=== PATIENT | male | born 1930 | race Caucasian/White ===

== ENCOUNTER 2016-05-17 12:19 | Inpatient (IN) | payer OTHER, MEDICARE ==
[~2016-05-17] VITALS: Ht 175.3 cm; Wt 81.6 kg
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
--- NOTE | 2016-05-17 12:41 | NUR ---
PT'S SUPRAPUBIC TUBE DRAINING CLEAR YELLOW URINE, L FOOT WITH WOUND ON PLANTAR PORTION OF HEEL, AND ACHILLES AREA OF HEEL WITH DRESSINGS IN PLACE, MINIMAL DRAINAGE NOTED. NO ODOR NOTED. DENIES PAIN AT SITES. PICC LINE IN LEFT UPPER ARM WITHOUT SIGNS OF INFECTION. RESTRICTED EXTREMITY BRACELET PLACED.
--- NOTE | 2016-05-17 13:08 | NUR ---
BLOOD WORK DRAWN VIA STRAIGHT STICK FROM [facility] (SST, LAV, BLUE, CEVALLOS) AND SENT TO LAB. URINE TRIO SENT TO LAB NOW FROM SUPRAPUBIC TUBE/DRAINAGE BAG.
--- NOTE | 2016-05-17 13:13 | NUR ---
PT'S O2 SAT NOTED TO BE 87% ON RA WITH STEADY WAVEFORM. PT PLACED ON 3L NC O2 WITH IMPROVEMENT TO 98%. WILL CONTINUE TO MONITOR.
[2016-05-17 13:15] LABS: ABSOLUTE BASOPHIL COUNT 0 /CUMM (0.0-0.2); ABSOLUTE EOSINOPHIL COUNT 0.3 /CUMM (0.0-0.7); ABSOLUTE LYMPH COUNT 1.2 /CUMM (1.2-3.4); ABSOLUTE MONOCYTE COUNT 0.9 /CUMM (0.10-0.60); BASOPHIL % 0.4 % (0.0-2.0); GRANULOCYTE % 74.3 % (42.2-75.2); MEAN CORPUSCULAR HGB 27.3 PG (27.0-31.0); MEAN CORPUSCULAR HGB CONC 32.8 G/DL (33.0-37.0); MEAN CORPUSCULAR VOLUME 83.1 FL (80.0-94.0); MEAN PLATELET VOLUME 6.7 FL (7.4-10.4); PLATELET COUNT 410 /CUMM (130-400); RBC DISTRIBUTION WIDTH 14.6 % (11.5-14.5); RED BLOOD CELL CT 2.59 /CUMM (4.70-6.10); WHITE BLOOD CELL COUNT 9.4 /CUMM (4.8-10.8)
--- NOTE | 2016-05-17 13:18 | NUR ---
DR. MURILLO AWARE OF O2 SAT
[2016-05-17 13:23] LABS: HEMATOCRIT 21.5 % (42-52)
--- NOTE | 2016-05-17 13:23 | NUR ---
CRITICAL TEST RESULTS [id number] SHAWN NELSON 86 M TESTS AND RESULTS: HGB 7.1 AND HCT 21.5 Results received and read back by: NATALIE CRUZ Results received date and time: 05/17/16 1323 The following provider was notified of the results, and read the results back: DR. MURILLO Notified date and time: 05/17/16 at 1323
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
--- NOTE | 2016-05-17 15:30 | NUR ---
PT INCONTINENT OF SOFT BROWN STOOL. GUAIAC "TRACE POSITIVE" PER DR. MURILLO. CHRIS CARE PROVIDED, SMALL BREAKDOWN NOTED TO COCCYX AREA, GAUZE APPLIED. PT REPOSITIONED IN BED. WILL CONTINUE TO MONITOR.
--- NOTE | 2016-05-17 16:22 | NUR ---
PHARM CALLED FOR MEDS.
[2016-05-17] MEDS ORDERED: LANTUS100 UNIT/1 SC (17:04)
[2016-05-17] MEDS ORDERED: VANCOMYCIN HCL1 G1 IV (17:04)
[2016-05-17] MEDS ORDERED: MIRALAX17 G1 PO (17:05)
[2016-05-17] MEDS ORDERED: COLACE100 M1 PO (17:05)
[2016-05-17] MEDS ORDERED: HUMALOG100 UNIT/2 SC (17:05)
[2016-05-17] MEDS ORDERED: METOPROLOL TART25 M1 PO (17:06)
[2016-05-17] MEDS ORDERED: SENNA8.6 M3 PO (17:06)
[2016-05-17] MEDS ORDERED: LIPITOR80 M1 PO (17:07)
[2016-05-17] MEDS ORDERED: JANUVIA50 M1 PO (17:07)
[2016-05-17] MEDS ORDERED: CALCIUM500 M1 PO (17:08)
[2016-05-17] MEDS ORDERED: AVODART0.5 M1 PO (17:08)
[2016-05-17] MEDS ORDERED: LASIX40 M1 PO (17:08)
[2016-05-17] MEDS ORDERED: FLORASTOR250 M1 PO (17:09)
[2016-05-17] MEDS ORDERED: MULTIVITAMINS1 EAC3 PO (17:09)
[2016-05-17] MEDS ORDERED: PANTOPRAZOLE SO40 M1 PO (17:09)
[2016-05-17] MEDS ORDERED: FLOMAX0.4 M1 PO (17:10)
[2016-05-17] MEDS ORDERED: ZOLOFT25 M1 PO (17:10)
[2016-05-17] MEDS ORDERED: OXYCODONE HCL5 M1 PO ×2 (17:11→17:12)
[2016-05-17] MEDS ORDERED: GLUCOSE33 GM PO ×2 (17:13→17:14)
[2016-05-17] MEDS ORDERED: MILK OF MA400 MG/52 PO (17:15)
[2016-05-17] MEDS ORDERED: IPRAT-ALBUT 0.5-3 ML INH (17:15)
[2016-05-17] MEDS ORDERED: BISACODYL10 M1 RC (17:16)
[2016-05-17] MEDS ORDERED: FLEET ENEMA133 ML RC (17:17)
[2016-05-17] MEDS ORDERED: ACEPHEN650 M1 PR (17:18)
[2016-05-17] MEDS ORDERED: ATHENOL325 MG PO (17:18)
[2016-05-17] MEDS ORDERED: PAIN RELIEVER325 MG PO (17:19)
--- NOTE | 2016-05-17 19:35 | RADIOLOGY REPORT ---
EXAMINATION: XR PORTABLE CHEST CLINICAL INFORMATION: Shortness of breath and weakness COMPARISON: None TECHNIQUE: Portable AP view of the chest was obtained. FINDINGS: Left-sided central line with the tip at the confluence of the brachiocephalic and SVC. Cardiomegaly. Airspace opacity right lower lung with small right effusion suspicious for pneumonia in the appropriate clinical setting. IMPRESSION: Airspace disease right lower lung with small right effusion represent pneumonia in the appropriate clinical setting. Repeat chest x-ray after treatment is therefore recommended.
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
--- NOTE | 2016-05-17 20:11 | NUR ---
Crisis consultation completed - evaluation reviewed with on-call psychiatrist Dr. Manuel. Pt. to be admitted to [facility] floor.
--- NOTE | 2016-05-17 20:14 | History & Physical ---
JANENE SMALLS,HENRIK 05/17/16 2014: General Information and HPI MD Statement: I have seen and personally examined SHAWN NELSON and documented this H&P. The patient is a 86 year old M who was referred to the emergency department from his extended care facility because of altered mental status, aggressive behavior. Source of Information: old records, EMS, W10 Exam Limitations: unable to give history, not alert/orientated, confusion History of Present Illness: 86-year-old male with past history of hypertension, hyperlipidemia, diabetes mellitus, GERD, BPH status post suprapubic catheter placement, recent hospital admission for MRSA osteomyelitis of left foot with PICC line in place, was referred to emergency department from his extended care facility because of acute change in mental status. The patient is a poor historian and is aggressive currently, thus limiting any chances of obtaining a proper history and physical examination. According to the notes, W10, he was in his usual state of health until yesterday, and earlier today he woke up and was aggressive to the staff in the [facility]. He seemed to be confused and disoriented, and denied any symptoms. We specifically asked for any fever, chest pain, shortness of breath, abdominal pain, dizziness, nausea, vomiting which she denied. His records from the previous facility showed hemoglobin of 9.3 on 05/04/2016, and creatinine of 1.2. 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 Allergies/Medications Allergies: Coded Allergies: Penicillins (PER W-10 05/17/16) lactose (PER W-05/17/16) Past History Travel History Traveled to [place] past 21 day No Medical History Any Pertinent Medical History? 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 Extended Care Facility Services at Home: Nursing Primary Language: Pashto ETOH Use: denies use Illicit Drug Use: denies illicit drug use Functional Ability ADLs Unknown: dressing, eating, toileting, bathing. IADLs Needs Assist: shopping, housework, finances, food prep, telephone, transportation, medication admin. Review of Systems Review of Systems Constitutional: Reports: no symptoms. EENTM: Reports: no symptoms. Cardiovascular: Reports: no symptoms. Respiratory: Reports: no symptoms. GI: Reports: no symptoms. Genitourinary: Reports: no symptoms. Musculoskeletal: Reports: no symptoms. Skin: Reports: see HPI, lesions (left foot). Neurological/Psychological: Reports: no symptoms. Hematologic/Endocrine: Reports: no symptoms. All Other Systems: Reviewed and Negative Exam & Diagnostic Data Last 24 Hrs of Vital Signs/I&O Vital Signs Date Time Temp Pulse Resp B/P Pulse O2 O2 Flow FiO2 Ox Delivery Rate 05/18 0013 99 Nasal 3.0L Cannula 05/17 2122 96.1 82 20 140/74 99 Nasal 3.0L Cannula 05/17 1850 97.8 79 18 146/79 97 05/17 1712 96.0 80 20 136/75 94 Nasal 3.0L Cannula 05/17 1513 97.1 75 20 126/61 95 Nasal 3.0L Cannula 05/17 1407 96.8 77 15 128/72 94 Nasal 3.0L Cannula 05/17 1250 91 Room Air Room Air 05/17 1222 96.5 91 15 137/70 91 Room Air Room Air Intake & Output 05/18 0800 05/18 0000 05/17 1600 Intake Total 0 Output Total 400 Balance -400 Intake, Oral 0 Output, Urine 400 Patient 81.647 kg 77.111 kg Weight Physical Exam General Appearance Alert, No Acute Distress, Disoriented Last 24 Hrs of Labs/Simba: Laboratory Tests 05/17/16 2015: CBC w Diff NO MAN DIFF REQ, RBC 2.68 L, MCV 83.2, MCH 27.3, RDW 15.1 H, MPV 6.9 L, Gran % 68.7, Lymphocytes % 17.1 L, Monocytes % 9.6 H, Eosinophils % 4.2, Basophils % 0.4, Absolute Granulocytes 6.6 H, Absolute Lymphocytes 1.6, Absolute Monocytes 0.9 H, Absolute Eosinophils 0.4, Absolute Basophils 0, PUBS MCHC 32.8 L 05/17/16 1305: Urine Opiates Screen < 100.00, Methadone Screen < 40, Barbiturate Screen < 60, Ur Phencyclidine Scrn < 6.00, Amphetamines Screen < 100, U Benzodiazepines Scrn < 85, Urine Cocaine Screen < 50, Urine Cannabis Screen < 5.00 05/17/16 1300: Anion Gap 10, Estimated GFR > 60, BUN/Creatinine Ratio 19.1, Glucose 306 H, Calcium 8.2 L, Iron 22 L, TIBC 201 L, Ferritin 99.2, Total Bilirubin 0.5, AST 20, ALT 37, Alkaline Phosphatase 142 H, Troponin I 0.04, Total Protein 6.6, Albumin 2.7 L, Globulin 3.9, Albumin/Globulin Ratio 0.7 L, CBC w Diff NO MAN DIFF REQ, RBC 2.59 L, MCV 83.1, MCH 27.3, RDW 14.6 H, MPV 6.7 L, Gran % 74.3, Lymphocytes % 13.0 L, Monocytes % 9.3, Eosinophils % 3.0, Basophils % 0.4, Absolute Granulocytes 7.0 H, Absolute Lymphocytes 1.2, Absolute Monocytes 0.9 H, Absolute Eosinophils 0.3, Absolute Basophils 0, PUBS MCHC 32.8 L, Serum Alcohol < 10.0 Microbiology 05/18 209 LOWER RESP: Respiratory Culture - ORD 05/18 209 LOWER RESP: Gram Stain - ORD 05/17 2141 BLOOD: Blood Culture - RECD 05/17 2134 BLOOD: Blood Culture - RECD Diagnostic Data EKG Results Normal sinus rhythm, rate 70s, no ST-T changes, QTc 483, QRS 92, AR 177 CXR Results CXR: Airspace disease right lower lung with small right effusion represent pneumonia in the appropriate clinical setting. Repeat chest x-ray after treatment is therefore recommended. DICTATED BY: CALEB ENCARNACION MD DATE/TIME DICTATED:05/17/161930 ENERGY CONSERVATION DIRECTOR:LINDA DATE/TIME TRANSCRIBED:05/17/161930 CT Chest: IMPRESSION: 1. Bandlike wedge-shaped opacity right lower lobe with mild adjacent groundglass attenuation may represent evolving pneumonia. Differential possibility includes atelectasis. 2. Bilateral pleural effusions with associated compression atelectasis, right slightly greater than left. 3. Ascending aortic aneurysm measuring approximately 5.3 cm. 4. Moderate pericardial effusion. 5. Mildly prominent reactive nodes noted in the mediastinum. 6. Small hiatal hernia. DICTATED BY: CALEB ENCARNACION MD DATE/TIME DICTATED:05/17/162346 ENERGY CONSERVATION DIRECTOR:LINDA DATE/TIME TRANSCRIBED:05/17/162346 Other Results Physical examnination: General: well nourished patient not in distress, but severely agitated, confused, aggressive, disoriented Thus, limited physical examination. Head: Normocephalic, atraumatic Neck: Supple, full range of motion, no thyromegaly Heart: Regular rate, regular rhythm Lung: Normal breath sound bilaterally with some crackles at the bases bilaterally Abd: Soft, non-tender, no distention appreciated Back: Normal range of motion, left side of buttock has dressing in situ which the patient refused examination Extremities: Normal knee exam bilaterally, no pedal edema, Left heel sole has an ulcer ~2x3 cm, well dressed. Neurologic: Alert, oriented x3, Cranial exam grossly intact, Speech is clear and coherent Skin: Warm and dry Psychiatric: As mentioned above in general exam Assessment/Plan Assessment: History 6-year-old male with past history of hypertension, hyperlipidemia, diabetes mellitus, GERD, BPH status post suprapubic catheter placement, recent hospital admission for MRSA osteomyelitis of left foot with PICC line in place, was referred to emergency department from his extended care facility because of acute change in mental status. In the emergency department, his vitals were stable with blood pressure 137/70, pulse 91, temperature 96.5, aspiration 15 and oxygen saturation 87% on room air thus placed on additional oxygen via NC. His lab showed WBC of 9.4, H&H of 7.1 and 21.5 which is rough from 9.4 on July 2015, and a thrombocytosis of 410 from baseline of 296. His BP was almost normal except BUN 21, glucose was high at 306, calcium 8.2 albumin 2.7 and toxicology was normal. His guaiac is trace C positive according to the emergency department attending Dr. Casiano. Chest x-ray and CAT scan of her chest so signs of pneumonia. Of note, CAT scan also shows ascending aortic aneurysm with a diameter of 5.3 cm which has to be addressed later on either I or asp net mvc developer or primary care physician after discharge if not within this admission. Currently, he is being treated in the general medical floor for the following issues: #Altered mental status, secondary to acute hypoxic respiratory failure, due to pneumonia, cannot rule out gram-negative rods or MRSA right now Due to limited history and physical examination, bulk of the clinical decision making has been according to the W-10, laboratory data, and radiological data we have so far. He was hypoxic and responded to additional oxygen, and his CAT scan of chest is suggestive of pneumonia. Another possible diagnosis as his worsening osteomyelitis causing system due to radiation and an acute change in mental status. Other possibility is intracranial abnormality, urinary tract infection the results of which is pending. -Patient is placed on IV antibiotics, initially only vancomycin but later after discussion with attending, is placed on meropenem as well. Since he is allergic to penicillins, Benadryl has been ordered concurrently for possible allergic reactions or itching. -Total respiratory care and nebulizations as needed -Follow blood cultures and lower respiratory tract cultures #Anemia Patient's H&H is low with 7.1 and 21.5, but is hemodynamically stable, guaiac is only partially positive according to the ED staff. -Will defer the decision to transfuse for the morning team. -The patient has not given consent for blood transfusion due to his current condition #Diabetes mellitus The patient is placed on diabetic diet, Accu-Cheks 3 times a day and at bedtime, insulin NovoLog per sliding scale. Continue home medications for hypertension with metoprolol 12.5 mg twice a day Continue home medications for hyperlipidemia with atorvastatin 80 mg once daily Continue home medications for BPH with tamsulosin 0.4 mg daily Continue home medications of ipratropium inhalation every 4-6 hours when necessary Continue magnesium oxide and bisacodyl for constipation #DVT prophylaxis with Lovenox #Diet: Diabetic diet #CODE STATUS: DNR according to his W 10 from [facility]. As Ranked By This Provider Problem List: 1. Agitation 2. Pneumonia Core Measures/Miscellaneous Acute Coronary Syndrome ACS Diagnosis: No Cerebrovascular Accident CVA/TIA Diagnosis: No Congestive Heart Failure CHF Diagnosis: No Venous Thromboembolism VTE Risk Factors: Age > 40 VTE Prophylaxis Ordered Inpt: Pharm- Lovenox No Mech VTE prophylaxis d/t: No contraindications No VTE Pharm Prophylaxis d/t: No contraindications VTE Diagnosis: No VTE Type: NONE VTE Confirmed by (Test): NONE Severe Sepsis Severe Sepsis Present: No Septic Shock Septic Shock Present: No Miscellaneous Documentation Attending Case Discussed With: Dr Henry Barclay Primary Care Physician: SOBIA BOJORQUEZ MD Patient sees these Specialists Internal medicine Level of Patient Care: General Medicine JASON MUNGUIA 05/18/16 0156: General Information and HPI Allergies/Medications Home Med list Acetaminophen (Athenol) 325 MG TABLET 2 TAB PO Q4H PRN PAIN/TEMP>100 ( Reported) Acetaminophen (Acephen) 650 MG SUPP.RECT 1 SUPP AR Q4H PRN PAIN/TEMP>100 ( Reported) Acetaminophen (Pain Reliever) 325 MG TABLET 975 MG PO Q8H PRN PAIN/TEMP ( Reported) Atorvastatin Calcium (Lipitor) 80 MG TABLET 1 TAB PO DAILY CHOLESTEROL ( Reported) Bisacodyl 10 MG SUPP.RECT 1 SUP RC PRN CONSTIPATION (Reported) Calcium Carbonate (Calcium) (Unknown Strength) TABLET (Unknown Dose) PO BID SUPPLEMENT (Reported) Dextrose (Glucose) 15 GRAM/33 GRAM GEL.PACKET 15 G PO EVERY 15 MIN PRN B/S < 70 OR 70-79 W/SYMPTOMS (Reported) Dextrose (Glucose) 15 GRAM/33 GRAM GEL.PACKET 30 G PO Q15MIN PRN B/S < 50MG/DL (Reported) Docusate Sodium (Colace) 100 MG CAPSULE 1 CAP PO BID STOOL SOFTENER (Reported ) Dutasteride (Avodart) 0.5 MG CAPSULE 1 CAP PO DAILY (Reported) Furosemide (Lasix) 40 MG TABLET 1 TAB PO DAILY DIURETIC (Reported) Insulin Lispro (Humalog) (Unknown Strength) VIAL (Unknown Dose) SC TIDAC DM ( Reported) Insulin-Lantus (Lantus) 100 UNIT/ML VIAL 50 UNITS SC QPM DM (Reported) Ipratropium/Albuterol Sulfate (Iprat-Albut 0.5-3(2.5) MG/3 Ml) 0.5 MG-3 MG (2.5 MG BASE)/3 ML AMPUL.NEB 1 VIAL INH Q6H PRN WHEEZING (Reported) Magnesium Hydroxide (Milk Of Magnesia) 400 MG/5 ML ORAL.SUSP 30 ML PO DAILY PRN CONSTIPATION (Reported) Metoprolol Tartrate 25 MG TABLET 12.5 MG PO BID HEART/BP (Reported) Multivitamin,Ther and Minerals (Multivitamins With Minerals Hp) 1 EACH CAPSULE 1 CAP PO DAILY SUPPLEMENT (Reported) Na Phos,M-B/Na Phos,Di-Ba (Fleet Enema) 19 GRAM-7 GRAM/118 ML ENEMA 1 E RC DAILY PRN CONSTIPATION (Reported) Oxycodone HCl 5 MG TABLET 2.5 MG PO Q6H PRN PAIN (Reported) Oxycodone HCl 5 MG TABLET 1 TAB PO Q6H PRN PAIN (Reported) Pantoprazole Sodium 40 MG TABLET.DR 1 TAB PO DAILY SUPPLEMENT (Reported) Polyethylene Glycol 3350 (Miralax) 17 GRAM POWD.PACK 1 PAC PO DAILY GI ( Reported) dissolve in water Saccharomyces Boulardii (Florastor) 250 MG CAPSULE 1 CAP PO BID PROBIOTIC ( Reported) Sennosides (Senna) 8.6 MG TABLET 1 TAB PO QPM GI (Reported) Sertraline HCl (Zoloft) 25 MG TABLET 1 TAB PO DAILY MENTAL HEALTH (Reported) Sitagliptin Phosphate (Januvia) 50 MG TABLET 1 TAB PO DAILY DM (Reported) Tamsulosin HCl (Flomax) 0.4 MG CAP.ER.24H 1 CAP PO QPM (Reported) Vancomycin HCl (Unknown Strength) VIAL 1,500 MG IV DAILY MRSA (Reported) Resident Review Statement Resident Statement: examined this patient, discussed with international accountant, agreed with international accountant Other Findings: Patient is 86 year old gentleman with past medical history significant for diabetes mellitus, hypertension, GERD, benign prostatic hypertrophy, status post suprapubic catheter placement, hyperlipidemia, recent history of osteomyelitis of calcaneus of left foot on vancomycin through a PICC line was brought in from extended care facility([facility]) been found to have very agitated, altered and aggressive for facility staff. In emergency room patient was found to have hypoxia showed 87% and was placed on 3 L of nasal cannula oxygen. When I examined patient and he was very agitated, cursing and saying that leave him alone, should that light and/or and let him . Patient was already been evaluated by psych. At times patient was slightly cooperative and allowed to do minimal examination but he was continuously refusing all his labs. He denied any chest pain, cough, headache, any urinary or bowel complaints but his history was unreliable as of confusion and confabulations. Vital signs on admission were temperature 97.1, pulse 75, respiratory rate 20, blood pressure 126/61 and he was saturating 95% on 3 L of nasal cannula. Labs on admission were WBC count 9.4, hemoglobin 7.3, hematocrit 22.3, platelet count 440, Odium 139, potassium 4.2, B UN 21, creatinine 1.1, glucose [address] showed 1. Bandlike wedge-shaped opacity right lower lobe with mild adjacent groundglass attenuation may represent evolving pneumonia. Differential possibility includes atelectasis. 2. Bilateral pleural effusions with associated compression atelectasis, right slightly greater than left. 3. Ascending aortic aneurysm measuring approximately 5.3 cm. 4. Moderate pericardial effusion. 5. Mildly prominent reactive nodes noted in the mediastinum. 6. Small hiatal hernia. Physical examination Alert but very agitated and aggressive Head atraumatic Neck supple Chest minimal bilaterally Heart S1-S2 normal Abdomen soft with suprapubic catheter Extremities show bilateral trace edema with left lower extremity had skin exfoliation and peeling Left upper extremity had intact PICC line with no erythema or infection Assessment and plan Patient is 86-year-old gentleman with history of hypertension, hyperlipidemia, diabetes, osteomyelitis left calcaneus came with agitation, confusion, altered mental status and found to have right lower lobe pneumonia with bilateral pleural effusion and aortic aneurysm of 5.3 cm with moderate pericardial effusion. He also found to have anemia with H&H of 7.3 and 22.3 with slightly positive guaiac stool. Problem list 1. Anemia with low H&H and positive stool guaiac 2. Right lower lobe pneumonia on CT scan without leukocytosis 3. History of osteomyelitis on vancomycin through a PICC line 4. Ascending aortic aneurysm measuring approximately 5.3 cm need follow-up as outpatient 5. Agitated and confused could be DVT due to underlying infection/hypoxia 6. Small breakdown of skin on coccyx area most likely pressure ulcer We will admit patient on general medical floor Vital signs every shift We will trend WBCs and H&H and if drop less than 7 we will transfuse As patient is allergic to penicillin we will start him on meropenem for gram- negative coverage for hospital acquired pneumonia along with his usual dose of vancomycin that he is receiving for osteomyelitis. We will request records from [facility] to confirm last dose of vancomycin. TRC and nebulization We'll continue all his home medications Psych consultation Wound consultation in am Accu-Cheks with NovoLog coverage according to sliding scale Diabetic diet Patient is DNI DNR Pharmacological DVT prophylaxis [facility] 05/18/16 0934: Attending MD Review Statement Attending Statement Attending MD Statement: examined this patient, discuss w/resident/PA/MEDICAL DERMATOLOGIST, agreed w/resident/PA/MEDICAL DERMATOLOGIST, reviewed EMR data (avail)
--- NOTE | 2016-05-17 20:20 | NUR ---
BLOOD WORK DRAWN AND SENT TO LAB NOW: LAV, BLUE, CEVALLOS AND PINK TOPS. PT REFUSING MEAL TRAY AT THIS TIME.
[2016-05-17 20:28] LABS: ABSOLUTE EOSINOPHIL COUNT 0.4 /CUMM (0.0-0.7); ABSOLUTE GRANULOCYTE CT 6.6 /CUMM (1.4-6.5); ABSOLUTE MONOCYTE COUNT 0.9 /CUMM (0.10-0.60); MEAN CORPUSCULAR HGB 27.3 PG (27.0-31.0)
[2016-05-17 20:34] LABS: ABSOLUTE BASOPHIL COUNT 0 /CUMM (0.0-0.2); ABSOLUTE LYMPH COUNT 1.6 /CUMM (1.2-3.4); BASOPHIL % 0.4 % (0.0-2.0); EOSINOPHIL % 4.2 % (0-5); GRANULOCYTE % 68.7 % (42.2-75.2); HEMATOCRIT 22.3 % (42-52); MEAN CORPUSCULAR HGB CONC 32.8 G/DL (33.0-37.0); MEAN CORPUSCULAR VOLUME 83.2 FL (80.0-94.0); MEAN PLATELET VOLUME 6.9 FL (7.4-10.4); PLATELET COUNT 440 /CUMM (130-400); RBC DISTRIBUTION WIDTH 15.1 % (11.5-14.5); RED BLOOD CELL CT 2.68 /CUMM (4.70-6.10); WHITE BLOOD CELL COUNT 9.5 /CUMM (4.8-10.8)
--- NOTE | 2016-05-17 20:41 | NUR ---
CRITICAL TEST RESULTS [id number] SHAWN NELSON 86 M TESTS AND RESULTS: H/H 7.3/22.3 Results received and read back by: NATALIE CRUZ Results received date and time: 05/17/162041 The following provider was notified of the results, and read the results back: DR. WATSON Notified date and time: 05/17/16 at 2041
--- NOTE | 2016-05-17 21:03 | NUR ---
BED ASSIGNMENT [id number]
--- NOTE | 2016-05-17 21:08 | NUR ---
PT REFUSE TO LET ME GET BLOOD
--- NOTE | 2016-05-17 21:10 | NUR ---
PT REFUSING BLOOD CULTURES AND ABO CONFIRMATION TO BE DRAWN. HOUSE STAFF AWARE AND AT BEDSIDE FOR EVAL AND TO SPEAK WITH PT ABOUT IMPORTANCE OF BLOOD WORK.
--- NOTE | 2016-05-17 21:33 | NUR ---
REPORT GIVEN TO 2N RN. AWARE THAT TECH AT BEDSIDE TO ATTEMPT PT TO HAVE BLOOD WORK DONE (BLOOD CULTURES AND ABO CONFIRMATION) AWARE THAT IF BLOOD DRAW IS SUCCESSFUL ANTIBIOTICS WILL BE GIVEN UPSTAIRS.
--- NOTE | 2016-05-17 23:09 | NUR ---
PT ARRIVED TO FLOOR @ 22;30 FROM ED VIA TRETCHER WITH DISTRIBUTION STAFF. PT MOVED TO BED WITH ASSIST X1, A/OX2, AGIATATED AT TIMES, ABLE TO BE VERBALLY DE-ESCALATE. SUPRAPUBIC TUBE IN PLACE, L LEG WOUND DSG CHANGED, COCCYX DSG CHANGED. PT REFUSED ALPS. CALL BOWLING IN PLACE, BED ALARM IN PLACE. WILL CONTINUE TO MONITOR
--- NOTE | 2016-05-18 00:03 | CT SCAN REPORT ---
EXAMINATION: CT CHEST WITHOUT CONTRAST CLINICAL INFORMATION: Abnormal chest x-ray. Evaluate for pneumonia. COMPARISON: Chest x-ray dated 05/17/2016 TECHNIQUE: Multidetector volumetric CT imaging of the chest was done. Axial MIP volume rendering provided. Sagittal and coronal reformatted images were obtained. DLP: 603.02 mGy-cm FINDINGS: FREIGHT BRAKEMAN: Airspace disease right lower lung. LUNGS: Wedge-shaped bandlike opacity noted in the right lower lobe with air bronchograms. Compression atelectatic changes bilateral bases . Evaluation is limited due to breathing motion. Mild groundglass opacity noted in the right upper lobe. Subpleural nodular density right middle lobe with associated atelectatic change measuring approximately 0.7 cm (series 5 image 210). MEDIASTINUM: Left subclavian PICC line terminating in the proximal SVC. Multiple small lymph nodes noted in the mediastinum including anterior mediastinal node measuring approximately 1 cm in short axis. Atherosclerotic disease with intimal calcification of the aorta and the coronary arteries. Ascending aortic aneurysm measuring approximately 5.3 cm in transverse diameter (series 2 image 29). Pericardial effusion. Small hiatal hernia. PLEURA: Moderate bilateral pleural effusions, right slightly greater than left. Adjacent compression atelectasis. AXILLA: No lymphadenopathy. UPPER ABDOMEN: Unremarkable. OSSEOUS STRUCTURES: Postoperative changes lower thoracic spine. No acute osseous abnormality. IMPRESSION: 1. Bandlike wedge-shaped opacity right lower lobe with mild adjacent groundglass attenuation may represent evolving pneumonia. Differential possibility includes atelectasis. 2. Bilateral pleural effusions with associated compression atelectasis, right slightly greater than left. 3. Ascending aortic aneurysm measuring approximately 5.3 cm. 4. Moderate pericardial effusion. 5. Mildly prominent reactive nodes noted in the mediastinum. 6. Small hiatal hernia.
--- NOTE | 2016-05-18 05:41 | NUR ---
PT BECAME EXTREMELY AGIATED AND REFUSED HEPARIN AND LABS.
[2016-05-18 06:18] VITALS: BP 140/70
--- NOTE | 2016-05-18 07:17 | PN- Housestaff ---
Subjective Follow-up For: Altered mental status Aggressive behavior Subjective: Patient seen and examined at bedside this AM. He is hostile and requesting I leave the room as he does not believe the hospital will help him. Review of Systems Constitutional: Denies: chills, malaise. EENTM: Denies: blurred vision. Cardiovascular: Denies: chest pain. Respiratory: Denies: cough, short of breath. Gastrointestinal: Denies: abdominal pain. Objective Last 24 Hrs of Vital Signs/I&O Vital Signs Date Time Temp Pulse Resp B/P Pulse O2 O2 Flow FiO2 Ox Delivery Rate 05/18 1423 98.1 75 18 124/68 97 Nasal 3.0L Cannula 05/18 1055 95 132/72 05/18 0800 94 Nasal 3.0L Cannula 05/18 0618 97.6 131 19 140/70 92 Nasal 3.0L Cannula 05/18 0013 99 Nasal 3.0L Cannula 05/17 2122 96.1 82 20 140/74 99 Nasal 3.0L Cannula 05/17 1850 97.8 79 18 146/79 97 05/17 1712 96.0 80 20 136/75 94 Nasal 3.0L Cannula Intake & Output 05/18 1600 05/18 0800 05/18 0000 Intake Total 1100 500 Output Total 350 300 Balance 750 200 Intake, IV 500 250 Intake, Oral 600 250 Number 2 Bowel Movements Output, Urine 350 300 Patient 180 lb Weight Physical Exam General Appearance: Alert, Non-cooperative with examiation or questioning HEENT: Atraumatic Neck: Supple, Full ROM Cardiovascular: Regular Rate (and rhythm) Lungs: Normal Air Movement, normal breath sound with some crackles bilaterallty Abdomen: Soft, No Tenderness, no distention Current Medications: Current Medications Sig/Brigido Start time Last Medication Dose Route Stop Time Status Admin Acetaminophen 650 MG Q6P PRN 05/17 2100 AC PO Alteplase, 2 MG ONE ONE 05/18 0845 DC Recombinant IV 05/18 945 Atorvastatin Calcium 80 MG 1700 05/18 1700 AC PO Bisacodyl 10 MG DAILY NEEDED PRN 05/17 2230 AC SC Ciprofloxacin 400 MG ONCE ONE 05/17 2044 DC IV 05/17 2045 Diphenhydramine HCl 25 MG Q6P PRN 05/18 0230 AC IV Ferrous Sulfate 325 MG DAILY 05/18 1000 AC 05/18 PO 1054 Furosemide 40 MG DAILY 05/18 1000 AC 05/18 PO 1054 Gentamicin Sulfate 80 MG ONE ONE 05/17 2044 DC Dextrose/Water 100 ML IV 05/174 Haloperidol 1 MG ONCE ONE 05/17 2230 DC 05/17 IM 05/17 2231 2305 Heparin Sodium 5,000 UNIT Q8 05/17 2200 AC 05/18 (Porcine) SC 1420 Ibuprofen 600 MG Q6P PRN 05/17 2100 AC PO Insulin Aspart 14 UNITS .STK-MED ONE 05/18 1313 DC SC 05/18 1314 Insulin Aspart 0 TIDAC 05/18 0800 AC 05/18 SC 1254 Insulin Aspart 14 UNITS ONCE ONE 05/18 0645 DC 05/18 SC 05/18 0646 0646 Insulin Detemir 25 UNITS QPM 05/18 2200 AC SC Insulin Detemir 10 UNITS ONCE ONE 05/18 0815 DC 05/18 SC 05/18 0816 0914 Ipratropium Art 2.5 ML Q4-6 PRN PRN 05/17 2245 AC INH Magnesium Hydroxide 30 ML DAILY NEEDED PRN 05/17 2245 AC PO Meropenem 1 GM IQ8 05/18 0800 DC IV Metoprolol Tartrate 12.5 MG BID 05/18 1000 AC 05/18 PO 1055 Olanzapine 2.5 MG BID PRN 05/18 0915 AC PO Oxycodone/ 2 TAB Q6P PRN 05/17 2100 AC Acetaminophen PO Patient Medication 1 ED .STK-MED ONE 05/18 1322 DC Teaching ED 05/18 1323 Sertraline HCl 25 MG DAILY 05/18 1000 AC 05/18 PO 1054 Sodium Chloride 500 ML BOLUS ONE 05/18 0830 DC 05/18 IV 05/18 1509 0915 Tamsulosin HCl 0.4 MG QPM 05/18 2200 AC PO Vancomycin HCl 1,500 MG DAILY 05/18 1000 DC Dextrose/Water 250 ML IV Vancomycin HCl 1,500 MG DAILY 05/18 1000 AC Dextrose/Water 500 ML IV Vancomycin HCl 1,000 MG ONCE ONE 05/17 2044 DC 05/18 Dextrose/Water 250 ML IV 05/17 2144 0148 Last 24 Hrs of Lab/Simba Results Last 24 Hrs of Labs/Mics: Laboratory Tests 05/18/16 1010: ESR Westergren > 130 H, Vancomycin Trough 21.3 H 05/18/16 0827: pH 7.43, pCO2 33 L, pO2 78 L, HCO3 21, ABG O2 Sat (Measured) 96.0, P-50 (Temp Corrected) YES, Carboxyhemoglobin 0.8 L, O2 Concentration % 3.5L, Temperature 97.6, O2 Delivery Method NC, Phlebotomy Draw Site RIGHT RADIAL 05/18/16 0700: Anion Gap 10, Estimated GFR 52 L, BUN/Creatinine Ratio 15.4, Glucose 509 *H, CBC w Diff NO MAN DIFF REQ, RBC 2.71 L, MCV 83.6, MCH 27.5, RDW 14.9 H, MPV 7.3 L, Gran % 79.1 H, Lymphocytes % 10.2 L, Monocytes % 7.1, Eosinophils % 3.3, Basophils % 0.3, Absolute Granulocytes 8.6 H, Absolute Lymphocytes 1.1 L, Absolute Monocytes 0.8 H, Absolute Eosinophils 0.4, Absolute Basophils 0, PUBS MCHC 32.9 L, Acetone Level NEGATIVE 05/18/16 0653: Urinalysis LIGHT H, Urine Color YEL, Urine Clarity CLEAR, Urine pH 6.0, Ur Specific [place] 1.025, Urine Protein NEG, Urine Ketones NEG, Urine Nitrite NEG, Urine Bilirubin NEG, Urine Urobilinogen 0.2, Ur Leukocyte Esterase NEG, Ur Microscopic SEDIMENT EXAMINED, Urine RBC RARE, Urine WBC 5-10 H, Urine Mucus FEW, Urine Hemoglobin TRACE-INTACT H, Urine Glucose >=1000 H 05/17/162014: CBC w Diff NO MAN DIFF REQ, RBC 2.68 L, MCV 83.2, MCH 27.3, RDW 15.1 H, MPV 6.9 L, Gran % 68.7, Lymphocytes % 17.1 L, Monocytes % 9.6 H, Eosinophils % 4.2, Basophils % 0.4, Absolute Granulocytes 6.6 H, Absolute Lymphocytes 1.6, Absolute Monocytes 0.9 H, Absolute Eosinophils 0.4, Absolute Basophils 0, PUBS MCHC 32.8 L Microbiology 05/18 209 LOWER RESP: Respiratory Culture - COLB 05/18 209 LOWER RESP: Gram Stain - COLB 05/17 2141 BLOOD: Blood Culture - RES 05/17 2134 BLOOD: Blood Culture - RES Assessment/Plan Assessment: Mr. Nino is a 86 year old male with PMH hypertension, hyperlipidemia, diabetes mellitus, GERD, BPH status post suprapubic catheter placement and recent hospital admission for MRSA osteomyelitis of left foot with PICC line in place who was sent in from extended care facility for altered mental status and aggressive behavior. In the ED: VS showed blood pressure 137/70, pulse 91, temperature 96.5, RR 15 and O2 saturation of 87% on RA. Labs showed WBC of 9.4, H&H of 7.1 and 21.5 which is rough from 9.4 on July 2015, and a thrombocytosis of 410 from baseline of 296. His BP was almost normal except BUN 21, glucose was high at 306, calcium 8.2 albumin 2.7 and toxicology was normal. His guaiac is trace C positive according to the emergency department attending Dr. Casiano. CXR showed RLL pneumonia with small right effusion. Patient was admitted to the general medicine floor and the following is the management: 1. Possible RLL PNA * Patient has no clinical signs of PNA, lungs CTA, normal air movement * IV meropenem that was started by night team has been discontinued * Monitor respiratory status * ID consult placed, f/u recommendations 2. Left foot osteomyelitis * PICC line in place, continue IV vanco * Podiatry consult placed, suggested obtaining records from * We have requested records, will send back to [facility], f/u * ID consult placed, f/u recs * ESR >130 * Of note, vanco trough high today so today's dose held 3. Agitation * Patient noted to be agitated on admission, he may initially have been altered as per night team * We have added zyprexa 2.5 mg PO BID as needed for agitation 4. DM * Accuchecks TID AC/HS * Home lantus is 50 mg SC QPM, we have restarted at 25 mg SC QPM and go up to 50 if FSGs remain uncontrolled * NSS TIDAC 5. HTN, HLD * Vital signs Q shift * Metoprolol 12.5 mg PO BID * Lasix 40 mg PO daily * Lipitor 80 mg PO daily DNR/DNI Diet: CC2 DVTP: Heparin SC Mild pain pathway Problem List: 1. Agitation Pain Ratin Pain Location: n/a Pain Goal: Remain pain free Pain Plan: Mild to severe pain pathway Tomorrow's Labs & Rationales: BEP, CBC
--- NOTE | 2016-05-18 07:57 | Cons- Wound Care ---
General Information and HPI Consulting Request Date of Consult: 05/18/16 Requested By: [facility] Reason for Consult: Left heel osteomyelitis and ulcer present on admission History of Present Illness: Patient is an 86-year-old gentleman admitted for altered mental status thought secondary to hypoxic respiratory failure pneumonia with history of left calcaneal osteomyelitis status post surgical debridement PICC line and IV antibiotics. Wound care consult was requested for management of his wound. He is unable to provide any significant history and there are no old records available Allergies/Medications Allergies: Coded Allergies: Penicillins (PER W-10 05/17/16) lactose (PER W-05/17/16) Home Med List: Acetaminophen (Athenol) 325 MG TABLET 2 TAB PO Q4H PRN PAIN/TEMP>100 ( Reported) Acetaminophen (Acephen) 650 MG SUPP.RECT 1 SUPP ME Q4H PRN PAIN/TEMP>100 ( Reported) Acetaminophen (Pain Reliever) 325 MG TABLET 975 MG PO Q8H PRN PAIN/TEMP ( Reported) Atorvastatin Calcium (Lipitor) 80 MG TABLET 1 TAB PO DAILY CHOLESTEROL ( Reported) Bisacodyl 10 MG SUPP.RECT 1 SUP RC PRN CONSTIPATION (Reported) Calcium Carbonate (Calcium) (Unknown Strength) TABLET (Unknown Dose) PO BID SUPPLEMENT (Reported) Dextrose (Glucose) 15 GRAM/33 GRAM GEL.PACKET 15 G PO EVERY 15 MIN PRN B/S < 70 OR 70-79 W/SYMPTOMS (Reported) Dextrose (Glucose) 15 GRAM/33 GRAM GEL.PACKET 30 G PO Q15MIN PRN B/S < 50MG/DL (Reported) Docusate Sodium (Colace) 100 MG CAPSULE 1 CAP PO BID STOOL SOFTENER (Reported ) Dutasteride (Avodart) 0.5 MG CAPSULE 1 CAP PO DAILY (Reported) Furosemide (Lasix) 40 MG TABLET 1 TAB PO DAILY DIURETIC (Reported) Insulin Lispro (Humalog) (Unknown Strength) VIAL (Unknown Dose) SC TIDAC DM ( Reported) Insulin-Lantus (Lantus) 100 UNIT/ML VIAL 50 UNITS SC QPM DM (Reported) Ipratropium/Albuterol Sulfate (Iprat-Albut 0.5-3(2.5) MG/3 Ml) 0.5 MG-3 MG (2.5 MG BASE)/3 ML AMPUL.NEB 1 VIAL INH Q6H PRN WHEEZING (Reported) Magnesium Hydroxide (Milk Of Magnesia) 400 MG/5 ML ORAL.SUSP 30 ML PO DAILY PRN CONSTIPATION (Reported) Metoprolol Tartrate 25 MG TABLET 12.5 MG PO BID HEART/BP (Reported) Multivitamin,Ther and Minerals (Multivitamins With Minerals Hp) 1 EACH CAPSULE 1 CAP PO DAILY SUPPLEMENT (Reported) Na Phos,M-B/Na Phos,Di-Ba (Fleet Enema) 19 GRAM-7 GRAM/118 ML ENEMA 1 E RC DAILY PRN CONSTIPATION (Reported) Oxycodone HCl 5 MG TABLET 2.5 MG PO Q6H PRN PAIN (Reported) Oxycodone HCl 5 MG TABLET 1 TAB PO Q6H PRN PAIN (Reported) Pantoprazole Sodium 40 MG TABLET.DR 1 TAB PO DAILY SUPPLEMENT (Reported) Polyethylene Glycol 3350 (Miralax) 17 GRAM POWD.PACK 1 PAC PO DAILY GI ( Reported) dissolve in water Saccharomyces Boulardii (Florastor) 250 MG CAPSULE 1 CAP PO BID PROBIOTIC ( Reported) Sennosides (Senna) 8.6 MG TABLET 1 TAB PO QPM GI (Reported) Sertraline HCl (Zoloft) 25 MG TABLET 1 TAB PO DAILY MENTAL HEALTH (Reported) Sitagliptin Phosphate (Januvia) 50 MG TABLET 1 TAB PO DAILY DM (Reported) Tamsulosin HCl (Flomax) 0.4 MG CAP.ER.24H 1 CAP PO QPM (Reported) Vancomycin HCl (Unknown Strength) VIAL 1,500 MG IV DAILY MRSA (Reported) Review of Systems Review of Systems: Noncontributory Past History Travel History Traveled to [place] past 21 day No Medical History Neurological: NONE EENT: NONE Cardiovascular: hypertension, HYPERLIPIDEMIA Respiratory: NONE Gastrointestinal: GERD Hepatic: NONE Renal: BREANA Musculoskeletal: MUSCLE WEAKNESS DIFFICULTY WALKING osteomyelitis left calcaneus pathologic fracture left calcaneus Psychiatric: NONE Endocrine: TYPE I DM Blood Disorders: NONE Cancer(s): NONE 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 Extended Care Facility Services at Home: Nursing Primary Language: Vincentian Smoking Status: Unknown If Ever Smoked ETOH Use: denies use Illicit Drug Use: denies illicit drug use Functional Ability ADLs Unknown: dressing, eating, toileting, bathing. IADLs Needs Assist: shopping, housework, finances, food prep, telephone, transportation, medication admin. Exam & Diagnostic Data Vital Signs and I&O Vital Signs Result Date Time Pulse Ox 92 05/18 617 B/P 140/70 05/18 617 O2 Delivery Nasal Cannula 05/18 617 O2 Flow Rate 3.0L 05/18 617 Temp 97.6 05/18 617 Pulse 131 05/18 617 Resp 19 05/18 617 Intake & Output 05/18 0000 05/17 1600 05/17 0800 Intake Total 0 Output Total 400 Balance -400 Intake, Oral 0 Output, Urine 400 Patient 170 lb Weight Family left calcaneus shows there to be a surgical incision approximately 7 x 3 cm there retained sutures present there is copious semi-purulent drainage distal pulses are unable to be palpated. Assessment/Plan Impression/Plan: 86-year-old gentleman who by history is had MRSA ostia of the left calcaneus status post apparent debridement with a nonhealing surgical wound present on admission. The amount of drainage is worrisome for persistent osteomyelitis. Recommend obtaining old records from prior hospitalization as well as imaging. Assess sedimentation rate. Wound care should be offloading and use of Aquacel Ag with wound cleansing. Podiatry evaluation would be appropriate. Review old records for evidence of prior vascular evaluation Consult Acknowledgment - Thank you for your consult request.
[2016-05-18 08:17] LABS: ABSOLUTE BASOPHIL COUNT 0 /CUMM (0.0-0.2); ABSOLUTE EOSINOPHIL COUNT 0.4 /CUMM (0.0-0.7); ABSOLUTE GRANULOCYTE CT 8.6 /CUMM (1.4-6.5); ABSOLUTE LYMPH COUNT 1.1 /CUMM (1.2-3.4); ABSOLUTE MONOCYTE COUNT 0.8 /CUMM (0.10-0.60); BASOPHIL % 0.3 % (0.0-2.0); EOSINOPHIL % 3.3 % (0-5); GRANULOCYTE % 79.1 % (42.2-75.2); HEMATOCRIT 22.7 % (42-52); MEAN CORPUSCULAR HGB 27.5 PG (27.0-31.0); MEAN CORPUSCULAR HGB CONC 32.9 G/DL (33.0-37.0); MEAN CORPUSCULAR VOLUME 83.6 FL (80.0-94.0); MEAN PLATELET VOLUME 7.3 FL (7.4-10.4); PLATELET COUNT 404 /CUMM (130-400); RBC DISTRIBUTION WIDTH 14.9 % (11.5-14.5); RED BLOOD CELL CT 2.71 /CUMM (4.70-6.10); WHITE BLOOD CELL COUNT 10.9 /CUMM (4.8-10.8)
--- NOTE | 2016-05-18 09:34 | Admission Certification ---
Admission Certification Certification Statement - As attending physician, I certify that at the time of - admission, based on clinical presentation, severity of - symptoms, need for further diagnostic testing and - therapeutic interventions, and risk of adverse outcomes - without in-hospital treatment, in my clinical assessment, - this patient requires an acute hospital stay for a minimum - of two nights or longer. I have also considered psychsocial - factors such as support system, advanced age, financial - issues, cognitive issues, and failed out-patient treatments, - past re-admission history, safety of patient, and lack of - compliance as applicable. Specific rationale supporting this admission is: Osteomyelitis left foot
--- NOTE | 2016-05-18 09:34 | PN- Att Addend ---
See Addendum Attending Addendum Attending Brief Note Patient this morning appears agitated and refusing labs, EKGs and medications General Appearance: Alert, No Acute Distress Skin: Grossly normal HEENT: PEERLA Neck: Supple, No JVD Cardiovascular: Regular Rate, Normal S1, Normal S2, No Murmurs Lungs: Clear to Auscultation, Normal Air Movement Abdomen: Normal Bowel Sounds, Soft, No Tenderness Neurological: Normal Speech, Strength at 5/5 X4 Ext, Cranial Nerves 3-12 NL, Reflexes 2+ Extremities: left foot dressing Vascular: Normal Pulses Assessment 86-year-old male with history of hypertension, diabetes, dyslipidemia, acid reflux, BPH with suprapubic catheter with a recent hospitalization for MRSA osteomyelitis involving left foot. CAT scan chest suggested right lower consolidation however there are no clear signs of clinical pneumonia we will discontinue meropenem and at this point continue vancomycin for treatment of osteomyelitis. Plan Check Vanco trough and ESR levels Discontinue meropenem Continue vancomycin ID and podiatric consult Check EKG Zyprexa 2.5 mg twice a day when necessary agitation Continue other home meds including insulin Accu-Cheks 3 times a day before meals DVT prophylaxis Current Medications Sig/Brigido Start time Last Medication Dose Route Stop Time Status Admin Acetaminophen 650 MG Q6P PRN 05/17 2100 AC PO Atorvastatin Calcium 80 MG 1700 05/18 1700 AC PO Bisacodyl 10 MG DAILY NEEDED PRN 05/17 2230 AC HI Ciprofloxacin 400 MG ONCE ONE 05/175 DC IV 05/17 2046 Diphenhydramine HCl 25 MG Q6P PRN 05/18 0230 AC IV Ferrous Sulfate 325 MG DAILY 05/18 1000 AC PO Furosemide 40 MG DAILY 05/18 1000 AC PO Gentamicin Sulfate 80 MG ONE ONE 05/17 2045 DC Dextrose/Water 100 ML IV 05/17 2114 Haloperidol 1 MG ONCE ONE 05/17 2230 DC 05/17 IM 05/17 2231 2305 Heparin Sodium 5,000 UNIT Q8 05/17 2200 AC (Porcine) SC Ibuprofen 600 MG Q6P PRN 05/17 2100 AC PO Insulin Aspart 0 TIDAC 05/18 0800 AC SC Insulin Aspart 14 UNITS ONCE ONE 05/18 0645 DC 05/18 SC 05/18 0646 0646 Insulin Detemir 10 UNITS ONCE ONE 05/18 0815 DC 05/18 SC 05/18 0816 0914 Ipratropium [place] 2.5 ML Q4-6 PRN PRN 05/17 2245 AC INH Magnesium Hydroxide 30 ML DAILY NEEDED PRN 05/17 2245 AC PO Meropenem 1 GM IQ8 05/18 0800 DC IV Metoprolol Tartrate 12.5 MG BID 05/18 1000 AC PO Olanzapine 2.5 MG BID PRN 05/18 0915 AC PO Oxycodone/ 2 TAB Q6P PRN 05/17 2100 AC Acetaminophen PO Sertraline HCl 25 MG DAILY 05/18 1000 AC PO Sitagliptin Phosphate 100 MG ONCE ONE 05/17 1545 DC 05/17 PO 05/17 1546 1711 Sodium Chloride 500 ML BOLUS ONE 05/18 0830 AC 05/18 IV 05/18 1509 0915 Tamsulosin HCl 0.4 MG QPM 05/18 2200 AC PO Vancomycin HCl 1,500 MG DAILY 05/18 1000 DC Dextrose/Water 250 ML IV Vancomycin HCl 1,500 MG DAILY 05/18 1000 AC Dextrose/Water 500 ML IV Vancomycin HCl 1,000 MG ONCE ONE 05/17 2044 DC 05/18 Dextrose/Water 250 ML IV 05/17 2144 0148 Laboratory Tests 05/18 05/18 0827 0700 Blood Gas pH (7.35 - 7.45 PH) 7.43 pCO2 (35 - 45 TORR) 33 L pO2 (80 - 100 TORR) 78 L HCO3 (21 - 28 MEQ/L) 21 ABG O2 Sat (Measured) (>96.0 %) 96.0 P-50 (Temp Corrected) YES Carboxyhemoglobin (1.5 - 5.0 %) 0.8 L O2 Concentration % 3.5L Temperature (97.0 - 100.0 FARH) 97.6 O2 Delivery Method NC Chemistry Sodium (137 - 145 mmol/L) 136 L Potassium (3.5 - 5.1 mmol/L) 4.9 Chloride (98 - 107 mmol/L) 105 Carbon Dioxide (22 - 30 mmol/L) 21 L Anion Gap (5 - 16) 10 BUN (9 - 20 mg/dL) 20 Creatinine (0.7 - 1.2 mg/dL) 1.3 H Estimated GFR (>60 ml/min) 52 L BUN/Creatinine Ratio (7 - 25 %) 15.4 Glucose (65 - 99 mg/dL) 509 *H Hematology CBC w Diff NO MAN DIFF REQ WBC (4.8 - 10.8 /CUMM) 10.9 H RBC (4.70 - 6.10 /CUMM) 2.71 L Hgb (14.0 - 18.0 G/DL) 7.5 L Hct (42 - 52 %) 22.7 L MCV (80.0 - 94.0 FL) 83.6 MCH (27.0 - 31.0 PG) 27.5 RDW (11.5 - 14.5 %) 14.9 H Plt Count (130 - 400 /CUMM) 404 H MPV (7.4 - 10.4 FL) 7.3 L Gran % (42.2 - 75.2 %) 79.1 H Lymphocytes % (20.5 - 51.1 %) 10.2 L Monocytes % (1.7 - 9.3 %) 7.1 Eosinophils % (0 - 5 %) 3.3 Basophils % (0.0 - 2.0 %) 0.3 Absolute Granulocytes (1.4 - 6.5 /CUMM) 8.6 H Absolute Lymphocytes (1.2 - 3.4 /CUMM) 1.1 L Absolute Monocytes (0.10 - 0.60 /CUMM) 0.8 H Absolute Eosinophils (0.0 - 0.7 /CUMM) 0.4 Absolute Basophils (0.0 - 0.2 /CUMM) 0 PUBS MCHC (33.0 - 37.0 G/DL) 32.9 L Miscellaneous Phlebotomy Draw Site RIGHT RADIAL Toxicology Acetone Level (NEGATIVE) NEGATIVE 05/18 05/17 0653 2014 Hematology CBC w Diff NO MAN DIFF REQ WBC (4.8 - 10.8 /CUMM) 9.5 RBC (4.70 - 6.10 /CUMM) 2.68 L Hgb (14.0 - 18.0 G/DL) 7.3 *L Hct (42 - 52 %) 22.3 L MCV (80.0 - 94.0 FL) 83.2 MCH (27.0 - 31.0 PG) 27.3 RDW (11.5 - 14.5 %) 15.1 H Plt Count (130 - 400 /CUMM) 440 H MPV (7.4 - 10.4 FL) 6.9 L Gran % (42.2 - 75.2 %) 68.7 Lymphocytes % (20.5 - 51.1 %) 17.1 L Monocytes % (1.7 - 9.3 %) 9.6 H Eosinophils % (0 - 5 %) 4.2 Basophils % (0.0 - 2.0 %) 0.4 Absolute Granulocytes (1.4 - 6.5 /CUMM) 6.6 H Absolute Lymphocytes (1.2 - 3.4 /CUMM) 1.6 Absolute Monocytes (0.10 - 0.60 /CUMM) 0.9 H Absolute Eosinophils (0.0 - 0.7 /CUMM) 0.4 Absolute Basophils (0.0 - 0.2 /CUMM) 0 PUBS MCHC (33.0 - 37.0 G/DL) 32.8 L Urines Urinalysis LIGHT H Urine Color (YEL,AMB,STR) YEL Urine Clarity (CLEAR) CLEAR Urine pH (5.0 - 8.0) 6.0 Ur Specific [place] (1.001 - 1.035) 1.025 Urine Protein (NEG,<30 MG/DL) NEG Urine Ketones (NEG) NEG Urine Nitrite (NEG) NEG Urine Bilirubin (NEG) NEG Urine Urobilinogen (0.1 - 1.0 EU/dl) 0.2 Ur Leukocyte Esterase (NEG) NEG Ur Microscopic SEDIMENT EXAMINED Urine RBC (0 - 5 /HPF) RARE Urine WBC (0 - 2 /HPF) 5-10 H Urine Mucus (FEW,NONE) FEW Urine Hemoglobin (NEG) TRACE-INTACT H Urine Glucose (N MG/DL) >=1000 H 05/17 05/17 1305 1300 Chemistry Sodium (137 - 145 mmol/L) 139 Potassium (3.5 - 5.1 mmol/L) 4.2 Chloride (98 - 107 mmol/L) 107 Carbon Dioxide (22 - 30 mmol/L) 22 Anion Gap (5 - 16) 10 BUN (9 - 20 mg/dL) 21 H Creatinine (0.7 - 1.2 mg/dL) 1.1 Estimated GFR (>60 ml/min) > 60 BUN/Creatinine Ratio (7 - 25 %) 19.1 Glucose (65 - 99 mg/dL) 306 H Calcium (8.4 - 10.2 mg/dL) 8.2 L Iron (49 - 181 ug/dL) 22 L TIBC (261 - 462 ug/dL) 201 L Ferritin (17.9 - 464 ng/mL) 99.2 Total Bilirubin (0.2 - 1.3 mg/dL) 0.5 AST (17 - 59 U/L) 20 ALT (21 - 72 U/L) 37 Alkaline Phosphatase (< 127 U/L) 142 H Troponin I (<0.11 ng/ml) 0.04 Total Protein (6.3 - 8.2 g/dL) 6.6 Albumin (3.5 - 5.0 g/dL) 2.7 L Globulin (1.9 - 4.2 gm/dL) 3.9 Albumin/Globulin Ratio (1.1 - 2.2 %) 0.7 L Hematology CBC w Diff NO MAN DIFF REQ WBC (4.8 - 10.8 /CUMM) 9.4 RBC (4.70 - 6.10 /CUMM) 2.59 L Hgb (14.0 - 18.0 G/DL) 7.1 *L Hct (42 - 52 %) 21.5 L MCV (80.0 - 94.0 FL) 83.1 MCH (27.0 - 31.0 PG) 27.3 RDW (11.5 - 14.5 %) 14.6 H Plt Count (130 - 400 /CUMM) 410 H MPV (7.4 - 10.4 FL) 6.7 L Gran % (42.2 - 75.2 %) 74.3 Lymphocytes % (20.5 - 51.1 %) 13.0 L Monocytes % (1.7 - 9.3 %) 9.3 Eosinophils % (0 - 5 %) 3.0 Basophils % (0.0 - 2.0 %) 0.4 Absolute Granulocytes (1.4 - 6.5 /CUMM) 7.0 H Absolute Lymphocytes (1.2 - 3.4 /CUMM) 1.2 Absolute Monocytes (0.10 - 0.60 /CUMM) 0.9 H Absolute Eosinophils (0.0 - 0.7 /CUMM) 0.3 Absolute Basophils (0.0 - 0.2 /CUMM) 0 PUBS MCHC (33.0 - 37.0 G/DL) 32.8 L Toxicology Urine Opiates Screen (>2000 NG/ML) < 100.00 Methadone Screen (>300 NG/ML) < 40 Barbiturate Screen (>200 NG/ML) < 60 Ur Phencyclidine Scrn (>25 NG/ML) < 6.00 Amphetamines Screen (>1000 NG/ML) < 100 U Benzodiazepines Scrn (>200 NG/ML) < 85 Urine Cocaine Screen (>300 NG/ML) < 50 Urine Cannabis Screen (>50 NG/ML) < 5.00 Serum Alcohol (<10 MG/DL) < 10.0 Vital Signs Date Time Temp Pulse Resp B/P Pulse O2 O2 Flow FiO2 Ox Delivery Rate 05/18 0618 97.6 131 19 140/70 92 Nasal 3.0L Cannula 05/18 0013 99 Nasal 3.0L Cannula 05/17 2122 96.1 82 20 140/74 99 Nasal 3.0L Cannula 05/17 1850 97.8 79 18 146/79 97 05/17 1712 96.0 80 20 136/75 94 Nasal 3.0L Cannula 05/17 1513 97.1 75 20 126/61 95 Nasal 3.0L Cannula 05/17 1407 96.8 77 15 128/72 94 Nasal 3.0L Cannula 05/17 1250 91 Room Air Room Air 05/17 1222 96.5 91 15 137/70 91 Room Air Room Air
--- NOTE | 2016-05-18 12:11 | NUR ---
0730- DR. TEIXEIRA NOTIFED OF BS THIS MORNING GREATER THAN 500. PT WAS GIVEN 14U NOVOLOG AT 0645. DO NOT GIVE [address] TEIXEIRA. SERUM BS TO BE ORDERED. 0800-PER [place] PIEDRA TO BE ORDERED AND TO BE GIVEN THIS MORNING. 11:30- PER DR. VICKEY TEIXEIRA, DO NOT GIVE 1000 VANCO DUE TO ELEVATED VANCO TROUGH LEVEL.
--- NOTE | 2016-05-18 12:30 | Cons- Podiatry ---
General Information and HPI Consulting Request Date of Consult: 05/18/16 Requested By: GELA WHITEHEAD MD History of Present Illness: Giovanni is an 86-year-old diabetic who was recently admitted for anemia and altered mental status. The patient was noted on physical exam to have a dressing and open wound to the posterior aspect of his left heel. Apparently, the patient underwent a surgical debridement and bone biopsy approximately 2-1/2 weeks ago at [facility] for a calcaneal osteomyelitis. The patient has a PICC line placed and is being currently treated with IV antibiotics. The patient denies any acute complaints associated with his left heel. Patient is unclear about any other details associated with the foot. Allergies/Medications Allergies: Coded Allergies: Penicillins (PER -05/17/16) lactose (PER 05/17/16) Home Med List: Acetaminophen (Athenol) 325 MG TABLET 2 TAB PO Q4H PRN PAIN/TEMP>100 ( Reported) Acetaminophen (Acephen) 650 MG SUPP.RECT 1 SUPP NM Q4H PRN PAIN/TEMP>100 ( Reported) Acetaminophen (Pain Reliever) 325 MG TABLET 975 MG PO Q8H PRN PAIN/TEMP ( Reported) Atorvastatin Calcium (Lipitor) 80 MG TABLET 1 TAB PO DAILY CHOLESTEROL ( Reported) Bisacodyl 10 MG SUPP.RECT 1 SUP RC PRN CONSTIPATION (Reported) Calcium Carbonate (Calcium) (Unknown Strength) TABLET (Unknown Dose) PO BID SUPPLEMENT (Reported) Dextrose (Glucose) 15 GRAM/33 GRAM GEL.PACKET 15 G PO EVERY 15 MIN PRN B/S < 70 OR 70-79 W/SYMPTOMS (Reported) Dextrose (Glucose) 15 GRAM/33 GRAM GEL.PACKET 30 G PO Q15MIN PRN B/S < 50MG/DL (Reported) Docusate Sodium (Colace) 100 MG CAPSULE 1 CAP PO BID STOOL SOFTENER (Reported ) Dutasteride (Avodart) 0.5 MG CAPSULE 1 CAP PO DAILY (Reported) Furosemide (Lasix) 40 MG TABLET 1 TAB PO DAILY DIURETIC (Reported) Insulin Lispro (Humalog) (Unknown Strength) VIAL (Unknown Dose) SC TIDAC DM ( Reported) Insulin-Lantus (Lantus) 100 UNIT/ML VIAL 50 UNITS SC QPM DM (Reported) Ipratropium/Albuterol Sulfate (Iprat-Albut 0.5-3(2.5) MG/3 Ml) 0.5 MG-3 MG (2.5 MG BASE)/3 ML AMPUL.NEB 1 VIAL INH Q6H PRN WHEEZING (Reported) Magnesium Hydroxide (Milk Of Magnesia) 400 MG/5 ML ORAL.SUSP 30 ML PO DAILY PRN CONSTIPATION (Reported) Metoprolol Tartrate 25 MG TABLET 12.5 MG PO BID HEART/BP (Reported) Multivitamin,Ther and Minerals (Multivitamins With Minerals Hp) 1 EACH CAPSULE 1 CAP PO DAILY SUPPLEMENT (Reported) Na Phos,M-B/Na Phos,Di-Ba (Fleet Enema) 19 GRAM-7 GRAM/118 ML ENEMA 1 E RC DAILY PRN CONSTIPATION (Reported) Oxycodone HCl 5 MG TABLET 2.5 MG PO Q6H PRN PAIN (Reported) Oxycodone HCl 5 MG TABLET 1 TAB PO Q6H PRN PAIN (Reported) Pantoprazole Sodium 40 MG TABLET.DR 1 TAB PO DAILY SUPPLEMENT (Reported) Polyethylene Glycol 3350 (Miralax) 17 GRAM POWD.PACK 1 PAC PO DAILY GI ( Reported) dissolve in water Saccharomyces Boulardii (Florastor) 250 MG CAPSULE 1 CAP PO BID PROBIOTIC ( Reported) Sennosides (Senna) 8.6 MG TABLET 1 TAB PO QPM GI (Reported) Sertraline HCl (Zoloft) 25 MG TABLET 1 TAB PO DAILY MENTAL HEALTH (Reported) Sitagliptin Phosphate (Januvia) 50 MG TABLET 1 TAB PO DAILY DM (Reported) Tamsulosin HCl (Flomax) 0.4 MG CAP.ER.24H 1 CAP PO QPM (Reported) Vancomycin HCl (Unknown Strength) VIAL 1,500 MG IV DAILY MRSA (Reported) Past History Medical History Neurological: NONE EENT: NONE Cardiovascular: hypertension, HYPERLIPIDEMIA Respiratory: NONE Gastrointestinal: GERD Hepatic: NONE Renal: BREANA Musculoskeletal: MUSCLE WEAKNESS DIFFICULTY WALKING osteomyelitis left calcaneus pathologic fracture left calcaneus Psychiatric: NONE Endocrine: TYPE I DM Blood Disorders: NONE Cancer(s): NONE [employer]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 Extended Care Facility Services at Home: Nursing Primary Language: [place] Smoking Status: Unknown If Ever Smoked ETOH Use: denies use Illicit Drug Use: denies illicit drug use Functional Ability ADLs Unknown: dressing, eating, toileting, bathing. IADLs Needs Assist: shopping, housework, finances, food prep, telephone, transportation, medication admin. Review of Systems Review of Systems: Unremarkable except for that noted in history present illness Exam & Diagnostic Data Vital Signs and I&O Vital Signs Date Time Temp Pulse Resp B/P Pulse O2 O2 Flow FiO2 Ox Delivery Rate 05/18 1055 95 132/72 05/18 0618 97.6 131 19 140/70 92 Nasal 3.0L Cannula 05/18 0013 99 Nasal 3.0L Cannula 05/17 2122 96.1 82 20 140/74 99 Nasal 3.0L Cannula 05/17 1850 97.8 79 18 146/79 97 05/17 1712 96.0 80 20 136/75 94 Nasal 3.0L Cannula 05/17 1513 97.1 75 20 126/61 95 Nasal 3.0L Cannula 05/17 1407 96.8 77 15 128/72 94 Nasal 3.0L Cannula 05/17 1250 91 Room Air Room Air Intake & Output 05/18 1600 05/18 0800 05/18 0000 05/17 1600 05/17 0800 05/17 0000 Intake Total 500 0 Output Total 300 400 Balance 200 -400 Intake, IV 250 Intake, Oral 250 0 Output, Urine 300 400 Patient 180 lb 170 lb Weight Physical Exam: Full-thickness wound identified to the posterior aspect of the left heel. There are retention sutures in place noted to the proximal extent of the open area. A thin elastic dressing is noted from within the wound bed. This may be securing antibiotic beads. Minimal edema noted to the area. No active cellulitis noted. Moderate amount of drainage identified from within the wound bed. Assessment/Plan Assessment/Plan Left heel osteomyelitis. Follow-up new sedimentation rate. Recommend trying to track down the records from [facility] regarding the bone cultures, sensitivities and the duration of treatment. For now, continue wound care per wound care team recommendations. Consult Acknowledgment - Thank you for your consult request. Attending MD Review Statement Attending Statement Attending MD Statement: examined this patient
--- NOTE | 2016-05-18 13:18 | Discharge Summary ---
Visit Information Visit Dates Admission Date: 05/17/16 Discharge Date: 05/23/2016 Hospital Course Course Attending Physician: GELA WHITEHEAD MD Primary Care Physician: SOBIA BOJORQUEZ MD Hospital Course: 86-year-old male with past history of hypertension, hyperlipidemia, diabetes mellitus, GERD, BPH status post suprapubic catheter placement, recent hospital admission for MRSA osteomyelitis of left foot with PICC line in place([facility]), was referred to emergency department from his extended care facility because of acute change in mental status. In the emergency department, his vitals were stable with blood pressure 137/70, pulse 91, temperature 96.5, aspiration 15 and oxygen saturation 87% on room air thus placed on additional oxygen via NC. His lab showed WBC of 9.4, H&H of 7.1 and 21.5 which is rough from 9.4 on July 2015, and a thrombocytosis of 410 from baseline of 296. His BP was almost normal except BUN 21, glucose was high at 306, calcium 8.2 albumin 2.7 and toxicology was normal. His guaiac is trace positive according to the emergency department. Chest x-ray and CAT scan of her chest so signs of pneumonia. Of note, CAT scan also shows ascending aortic aneurysm with a diameter of 5.3 cm which has to be addressed later on with his PCP He was admitted to general medicine floor and treated for these medical conditions #Altered mental status, possibly due to osteomyelitis We continued IV vancomycin. ID and podiatry were on board. ESR more than 130. She and episodes of uncooperativeness with the nursing and house staff during the hospitalization. Documents from [facility] were obtained. Wound care, ID, Podiatry were on board. patient still had drainge from the lesion with ESR of more than 130 Podiatry/ID recommended continuing antibiotic therapy and following up with [facility] for further management of the osteomyelitis.last vanc trough was 14.7.As per discussion with Dr. Allan Mercado, the patient will be transferred under his service to [facility]. #Anemia Patient hg remained around 7.5. Iron and TIBC were low. No episode of acute bleeding were observed. serum iron and TIBC were low. Guaiac stool was mildly positive once and and negative for second time. we put the patient on Iron pills TID. #Diabetes mellitus The patient is placed on diabetic diet, Accu-Cheks 3 times a day. long acting and short acting sliding scale linsulin. No major events were observed. #HTN, hyperlipidemia, BPH we continued home medications. No major events are observed. Allergies: Coded Allergies: Penicillins (PER -05/17/16) lactose (PER 05/17/16) Disposition Summary Disposition Principal Diagnosis: Anemia Osteomyelitis Rule out pneumonia Additional Diagnosis: BPH HTN Suprapubic catheter Discharge Disposition: SNF Discharge Instructions General Discharge Information Code Status: Do Not Resucitate/Intubat Patient's Diet: diabetic Patient's Activity: as Tolerated Follow-Up Instructions/Appts: -you are being [facility] -Please follow-up with your primary care provider within 7 days after discharge. -We have made changes to your home medications, please read the instructions carefully. -Please come back to the hospital if your symptoms got worse. Medications at Discharge Discharge Medications: Stop taking the following medications: Vancomycin HCl (Vancomycin HCl) (Unknown Strength) VIAL INTRAVEN DAILY Insulin Lispro (Humalog) (Unknown Strength) VIAL Inject into fatty tissue 3 TIMES DAILY BEFORE MEALS Continue taking these medications: Insulin-Lantus (Lantus) 100 UNIT/ML VIAL 50 Units Inject into fatty tissue Every night Comments: PER [facility] Docusate Sodium (Colace) 100 MG CAPSULE 1 Capsule ORAL TWICE DAILY Comments: PER [facility] Polyethylene Glycol 3350 (Miralax) 17 GRAM POWD.PACK 1 Packet ORAL DAILY Instructions: dissolve in water Comments: PER [facility] Sennosides (Senna) 8.6 MG TABLET 1 Tablet ORAL Every night Comments: PER [facility] Metoprolol Tartrate (Metoprolol Tartrate) 25 MG TABLET 12.5 Milligram ORAL TWICE DAILY Comments: [facility] Sitagliptin Phosphate (Januvia) 50 MG TABLET 1 Tablet ORAL DAILY Comments: [facility] Atorvastatin Calcium (Lipitor) 80 MG TABLET 1 Tablet ORAL DAILY Comments: PER [facility] Calcium Carbonate (Calcium) 500 MG CALCIUM (1,250 MG) TABLET 1 Tablet ORAL TWICE DAILY Comments: PER [facility] Dutasteride (Avodart) 0.5 MG CAPSULE 1 Capsule ORAL DAILY Comments: [facility] Furosemide (Lasix) 40 MG TABLET 1 Tablet ORAL DAILY Comments: [facility] Multivitamin,Ther and Minerals (Multivitamins With Minerals Hp) 1 EACH CAPSULE 1 Capsule ORAL DAILY Comments: PER [facility] Pantoprazole Sodium (Pantoprazole Sodium) 40 MG TABLET.DR 1 Tablet ORAL DAILY Comments: [facility] Saccharomyces Boulardii (Florastor) 250 MG CAPSULE 1 Capsule ORAL TWICE DAILY Comments: PER [facility] Sertraline HCl (Zoloft) 25 MG TABLET 1 Tablet ORAL DAILY Comments: [facility] Tamsulosin HCl (Flomax) 0.4 MG CAP.ER.24H 1 Capsule ORAL Every night Comments: PER [facility] Oxycodone HCl (Oxycodone HCl) 5 MG TABLET 2.5 Milligram ORAL Q6H as needed for PAIN Comments: PER [facility] Oxycodone HCl (Oxycodone HCl) 5 MG TABLET 1 Tablet ORAL Q6H as needed for PAIN Comments: PER [facility] Dextrose (Glucose) 15 GRAM/33 GRAM GEL.PACKET 15 G ORAL EVERY 15 MIN as needed for B/S < 70 OR 70-79 W/SYMPTOMS Comments: 40% GEL PER [facility] Dextrose (Glucose) 15 GRAM/33 GRAM GEL.PACKET 30 G ORAL Q15MIN as needed for B/S < 50MG/DL Comments: PER [facility] 40% GEL Ipratropium/Albuterol Sulfate (Iprat-Albut 0.5-3(2.5) MG/3 Ml) 0.5 MG-3 MG (2.5 MG BASE)/3 ML AMPUL.NEB 1 VIAL Inhale through mouth Q6H as needed for WHEEZING Comments: PER [facility] Magnesium Hydroxide (Milk Of Magnesia) 400 MG/5 ML ORAL.SUSP 30 Milliliters ORAL DAILY as needed for CONSTIPATION Comments: PER [facility] Bisacodyl (Bisacodyl) 10 MG SUPP.RECT 1 Suppository RECTAL as needed for CONSTIPATION Comments: IF MOM INEFFECTIVE PER [facility] Na Phos,M-B/Na Phos,Di-Ba (Fleet Enema) 19 GRAM-7 GRAM/118 ML ENEMA 1 Enema RECTAL DAILY as needed for CONSTIPATION Comments: PER [facility] IF BISACODYL SUPP INEFFECTIVE Acetaminophen (Athenol) 325 MG TABLET 2 Tablet ORAL Q4H as needed for PAIN/TEMP>100 Comments: PER [facility] NTE 3GM/24H Acetaminophen (Acephen) 650 MG SUPP.RECT 1 SUPPOSITORY RECTALLY Q4H as needed for PAIN/TEMP>100 Comments: PER [facility] NTE 3GM IN 24H Vancomycin HCl (Vancomycin HCl) 1 GRAM VIAL 1,250 Milligram INTRAVEN DAILY Days = 28 This prescription has been renewed Start taking the following new medications: Olanzapine (Olanzapine) 2.5 MG TABLET 2.5 Milligram ORAL TWICE DAILY as needed for AGITAT/HALLUCINATION/IRRITABIL Days = 5 No Refills Insulin Detemir (Levemir) 100 UNIT/ML VIAL 30 Units Inject into fatty tissue Every night Days = 15 No Refills Insulin Aspart (Novolog) 100 UNIT/ML VIAL 0 Units Inject into fatty tissue 3 TIMES DAILY BEFORE MEALS Days = 28 No Refills Instructions: BEFORE MEALS Blood Insulin Sugar Units <80 0 81-150 0 151-200 2 201-250 4 251-300 6 301-350 8 351-400 10 >400 12 and Call Doctor Melatonin (Melatonin) 5 MG TABLET 5 Milligram ORAL AT BEDTIME NEEDED as needed for INSOMNIA Days = 10 No Refills Ferrous Sulfate (Ferrous Sulfate) 325 MG (65 MG IRON) TABLET.DR 325 Milligram ORAL THREE TIMES DAILY Days = 28 No Refills Copies To: MIGUEL ALVARADO MD,SUZY AMAYA DPM,PALOMA JIMENEZ MD,SHIRA Novoa; GELA WHITEHEAD MD Attending MD Review Statement Documenting Attending: GELA WHITEHEAD MD
[2016-05-18 14:23] VITALS: BP 124/68
--- NOTE | 2016-05-18 16:19 | Patient Discharge Instructions ---
Discharge Instructions General Discharge Information You were seen/treated for: altered mental status anemia osteomylities Special Instructions: -[facility] being [facility] for furthur management of your foot infection. -Please follow-up with your primary care provider within 7 days after discharge. -We have made changes to your home medications, please read the instructions carefully. -Please come back to the hospital if your symptoms got worse. Diet Recommended Diet: Diabetic Acute Coronary Syndrome Inclusion Criteria At DC or during hospital stay patient has or had the following: ACS DIAGNOSIS No Discharge Core Measures Meds if any: Prescribed or Continued at Discharge Meds if any: NOT Prescribed or Continued at Discharge Congestive Heart Failure Inclusion Criteria At DC or during hospital stay patient has or had the following: CHF DIAGNOSIS No Discharge Core Measures Meds if any: Prescribed or Continued at Discharge Meds if any: NOT Prescribed or Continued at Discharge Cerebrovascular accident Inclusion Criteria At DC or during hospital stay patient has or had the following: CVA/TIA Diagnosis No Discharge Core Measures Meds if any: Prescribed or Continued at Discharge Meds if any: NOT Prescribed or Continued at Discharge Venous thromboembolism Inclusion Criteria VTE Diagnosis No VTE Type NONE VTE Confirmed by (Test) NONE Discharge Core Measures - Per Current guidelines, there needs to be overlap - treatment for the first 5 days of Warfarin therapy. - If discharged on Warfarin prior to 5 days of - overlap therapy, the patient will need to be - assessed for post discharge needs including - *Post discharge parental anticoagulation - *Warfarin and/or parental anticoagulation education - *Follow up date to check INR post discharge At least 5 days overlap therapy as Inpatient No Meds if any: Prescribed or Continued at Discharge Note: Overlap Therapy is Warfarin and Anticoagulant Meds if any: NOT Prescribed or Continued at Discharge
--- NOTE | 2016-05-18 17:31 | Cons- Infect Disease ---
General Information and HPI Consulting Request Date of Consult: 05/18/16 Requested By: GELA WHITEHEAD MD Reason for Consult: Osteomyelitis of the left heel Source of Information: patient, family Exam Limitations: confusion, poor historian History of Present Illness: This is an 86-year-old man with diabetes, BPH, status post placement of a suprapubic catheter 1 year prior to admission, recently hospitalized at [facility] for MRSA osteomyelitis of the left calcaneus, begun on Vancomycin via a PICC that was inserted in the left upper extremity, with no further details available at this time, discharged to a rehabilitation facility 2 days prior to admission here, admitted on May 17 after he was brought to the emergency room because of agitation at the rehabilitation facility. On admission he was afebrile. O2 sat was 87% on room air. He was incontinent of stool which was "trace" guaiac positive. Laboratory data revealed a white blood cell count of 9000, H&H 7 and 22, glucose 306, BUN/creatinine 21 and 1.1, alk phosphatase 142. Chest x-ray revealed airspace disease in the right lower lobe with a small pleural effusion. CT of the chest revealed a bandlike wedge-shaped opacity in the right lower lobe with air bronchograms and compressive atelectasis at both bases and moderate bilateral pleural effusions. He was continued on Vancomycin. He has remained afebrile overnight with improved mental status today, with no further agitation reported. At present he offers no complaints. He does report a recent cough, but denies any chest pain or shortness of breath. Allergies/Medications Allergies: Coded Allergies: Penicillins (PER -05/17/16) lactose (PER 05/17/16) Home Med List: Acetaminophen (Athenol) 325 MG TABLET 2 TAB PO Q4H PRN PAIN/TEMP>100 ( Reported) Acetaminophen (Acephen) 650 MG SUPP.RECT 1 SUPP WV Q4H PRN PAIN/TEMP>100 ( Reported) Atorvastatin Calcium (Lipitor) 80 MG TABLET 1 TAB PO DAILY CHOLESTEROL ( Reported) Bisacodyl 10 MG SUPP.RECT 1 SUP RC PRN CONSTIPATION (Reported) Calcium Carbonate (Calcium) (Unknown Strength) TABLET (Unknown Dose) PO BID SUPPLEMENT (Reported) Dextrose (Glucose) 15 GRAM/33 GRAM GEL.PACKET 15 G PO EVERY 15 MIN PRN B/S < 70 OR 70-79 W/SYMPTOMS (Reported) Dextrose (Glucose) 15 GRAM/33 GRAM GEL.PACKET 30 G PO Q15MIN PRN B/S < 50MG/DL (Reported) Docusate Sodium (Colace) 100 MG CAPSULE 1 CAP PO BID STOOL SOFTENER (Reported ) Dutasteride (Avodart) 0.5 MG CAPSULE 1 CAP PO DAILY (Reported) Furosemide (Lasix) 40 MG TABLET 1 TAB PO DAILY DIURETIC (Reported) Insulin Lispro (Humalog) (Unknown Strength) VIAL (Unknown Dose) SC TIDAC DM ( Reported) Insulin-Lantus (Lantus) 100 UNIT/ML VIAL 50 UNITS SC QPM DM (Reported) Ipratropium/Albuterol Sulfate (Iprat-Albut 0.5-3(2.5) MG/3 Ml) 0.5 MG-3 MG (2.5 MG BASE)/3 ML AMPUL.NEB 1 VIAL INH Q6H PRN WHEEZING (Reported) Magnesium Hydroxide (Milk Of Magnesia) 400 MG/5 ML ORAL.SUSP 30 ML PO DAILY PRN CONSTIPATION (Reported) Metoprolol Tartrate 25 MG TABLET 12.5 MG PO BID HEART/BP (Reported) Multivitamin,Ther and Minerals (Multivitamins With Minerals Hp) 1 EACH CAPSULE 1 CAP PO DAILY SUPPLEMENT (Reported) Na Phos,M-B/Na Phos,Di-Ba (Fleet Enema) 19 GRAM-7 GRAM/118 ML ENEMA 1 E RC DAILY PRN CONSTIPATION (Reported) Oxycodone HCl 5 MG TABLET 2.5 MG PO Q6H PRN PAIN (Reported) Oxycodone HCl 5 MG TABLET 1 TAB PO Q6H PRN PAIN (Reported) Pantoprazole Sodium 40 MG TABLET.DR 1 TAB PO DAILY SUPPLEMENT (Reported) Polyethylene Glycol 3350 (Miralax) 17 GRAM POWD.PACK 1 PAC PO DAILY GI ( Reported) dissolve in water Saccharomyces Boulardii (Florastor) 250 MG CAPSULE 1 CAP PO BID PROBIOTIC ( Reported) Sennosides (Senna) 8.6 MG TABLET 1 TAB PO QPM GI (Reported) Sertraline HCl (Zoloft) 25 MG TABLET 1 TAB PO DAILY MENTAL HEALTH (Reported) Sitagliptin Phosphate (Januvia) 50 MG TABLET 1 TAB PO DAILY DM (Reported) Tamsulosin HCl (Flomax) 0.4 MG CAP.ER.24H 1 CAP PO QPM (Reported) Vancomycin HCl (Unknown Strength) VIAL 1,500 MG IV DAILY MRSA (Reported) Past History Travel History Traveled to [place] past 21 day No Medical History Neurological: NONE EENT: NONE Cardiovascular: hypertension, hyperlipidemia Respiratory: NONE Gastrointestinal: GERD Hepatic: NONE Renal: benign prost hyperplasia Musculoskeletal: MUSCLE WEAKNESS DIFFICULTY WALKING osteomyelitis left calcaneus pathologic fracture left calcaneus Psychiatric: NONE Endocrine: TYPE I DM Blood Disorders: NONE Cancer(s): NONE 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 Extended Care Facility Services at Home: Nursing Primary Language: Palauan Smoking Status: Unknown If Ever Smoked ETOH Use: denies use Illicit Drug Use: denies illicit drug use Functional Ability ADLs Unknown: dressing, eating, toileting, bathing. IADLs Needs Assist: shopping, housework, finances, food prep, telephone, transportation, medication admin. Review of Systems Review of Systems Respiratory: Reports: cough. Denies: short of breath. GI: Reports: no symptoms. All Other Systems: Reviewed and Negative Exam & Diagnostic Data Last 24 Hrs of Vital Signs/I&O Vital Signs Date Time Temp Pulse Resp B/P Pulse O2 O2 Flow FiO2 Ox Delivery Rate 05/18 1423 98.1 75 18 124/68 97 Nasal 3.0L Cannula 05/18 1055 95 132/72 05/18 0800 94 Nasal 3.0L Cannula 05/18 0618 97.6 131 19 140/70 92 Nasal 3.0L Cannula 05/18 0013 99 Nasal 3.0L Cannula 05/17 2122 96.1 82 20 140/74 99 Nasal 3.0L Cannula 05/17 1850 97.8 79 18 146/79 97 Intake & Output 05/18 1600 05/18 0800 05/18 0000 Intake Total 1100 500 Output Total 350 300 Balance 750 200 Intake, IV 500 250 Intake, Oral 600 250 Number 2 Bowel Movements Output, Urine 350 300 Patient 180 lb Weight Physical Exam Other Physical Findings: He is awake and alert, confused and disoriented, but in no acute distress. There is audible wheezing. He is afebrile. Skin reveals no rash. HEENT exam is negative. Neck is supple with no adenopathy. Lungs crackles at the right base. Heart regular rhythm with no murmur. Abdomen is soft, nontender with positive bowel sounds; suprapubic tube in place with no inflammation at the site. Back no CVA tenderness. Extremities ulcer on the posterior aspect of the left heel, with retention sutures in place, with no erythema or tenderness; left leg swelling compared to the right leg, with decreased pulses bilaterally; PICC in the left upper extremity with no inflammation at the site. Neuro is without focality. Last 24 Hours of Lab Results: Laboratory Tests 05/18 05/18 1010 0827 Blood Gas pH (7.35 - 7.45 PH) 7.43 pCO2 (35 - 45 TORR) 33 L pO2 (80 - 100 TORR) 78 L HCO3 (21 - 28 MEQ/L) 21 ABG O2 Sat (Measured) (>96.0 %) 96.0 P-50 (Temp Corrected) YES Carboxyhemoglobin (1.5 - 5.0 %) 0.8 L O2 Concentration % 3.5L Temperature (97.0 - 100.0 FARH) 97.6 O2 Delivery Method NC Hematology ESR Westergren (0 - 10 MM) > 130 H Miscellaneous Phlebotomy Draw Site RIGHT RADIAL Toxicology Vancomycin Trough (10.0 - 20.0 ug/mL) 21.3 H 05/18 05/18 0700 0653 Chemistry Sodium (137 - 145 mmol/L) 136 L Potassium (3.5 - 5.1 mmol/L) 4.9 Chloride (98 - 107 mmol/L) 105 Carbon Dioxide (22 - 30 mmol/L) 21 L Anion Gap (5 - 16) 10 BUN (9 - 20 mg/dL) 20 Creatinine (0.7 - 1.2 mg/dL) 1.3 H Estimated GFR (>60 ml/min) 52 L BUN/Creatinine Ratio (7 - 25 %) 15.4 Glucose (65 - 99 mg/dL) 509 *H Hematology CBC w Diff NO MAN DIFF REQ WBC (4.8 - 10.8 /CUMM) 10.9 H RBC (4.70 - 6.10 /CUMM) 2.71 L Hgb (14.0 - 18.0 G/DL) 7.5 L Hct (42 - 52 %) 22.7 L MCV (80.0 - 94.0 FL) 83.6 MCH (27.0 - 31.0 PG) 27.5 RDW (11.5 - 14.5 %) 14.9 H Plt Count (130 - 400 /CUMM) 404 H MPV (7.4 - 10.4 FL) 7.3 L Gran % (42.2 - 75.2 %) 79.1 H Lymphocytes % (20.5 - 51.1 %) 10.2 L Monocytes % (1.7 - 9.3 %) 7.1 Eosinophils % (0 - 5 %) 3.3 Basophils % (0.0 - 2.0 %) 0.3 Absolute Granulocytes (1.4 - 6.5 /CUMM) 8.6 H Absolute Lymphocytes (1.2 - 3.4 /CUMM) 1.1 L Absolute Monocytes (0.10 - 0.60 /CUMM) 0.8 H Absolute Eosinophils (0.0 - 0.7 /CUMM) 0.4 Absolute Basophils (0.0 - 0.2 /CUMM) 0 PUBS MCHC (33.0 - 37.0 G/DL) 32.9 L Toxicology Acetone Level (NEGATIVE) NEGATIVE Urines Urinalysis LIGHT H Urine Color (YEL,AMB,STR) YEL Urine Clarity (CLEAR) CLEAR Urine pH (5.0 - 8.0) 6.0 Ur Specific [place] (1.001 - 1.035) 1.025 Urine Protein (NEG,<30 MG/DL) NEG Urine Ketones (NEG) NEG Urine Nitrite (NEG) NEG Urine Bilirubin (NEG) NEG Urine Urobilinogen (0.1 - 1.0 EU/dl) 0.2 Ur Leukocyte Esterase (NEG) NEG Ur Microscopic SEDIMENT EXAMINED Urine RBC (0 - 5 /HPF) RARE Urine WBC (0 - 2 /HPF) 5-10 H Urine Mucus (FEW,NONE) FEW Urine Hemoglobin (NEG) TRACE-INTACT H Urine Glucose (N MG/DL) >=1000 H 05/17 2014 Hematology CBC w Diff NO MAN DIFF REQ WBC (4.8 - 10.8 /CUMM) 9.5 RBC (4.70 - 6.10 /CUMM) 2.68 L Hgb (14.0 - 18.0 G/DL) 7.3 *L Hct (42 - 52 %) 22.3 L MCV (80.0 - 94.0 FL) 83.2 MCH (27.0 - 31.0 PG) 27.3 RDW (11.5 - 14.5 %) 15.1 H Plt Count (130 - 400 /CUMM) 440 H MPV (7.4 - 10.4 FL) 6.9 L Gran % (42.2 - 75.2 %) 68.7 Lymphocytes % (20.5 - 51.1 %) 17.1 L Monocytes % (1.7 - 9.3 %) 9.6 H Eosinophils % (0 - 5 %) 4.2 Basophils % (0.0 - 2.0 %) 0.4 Absolute Granulocytes (1.4 - 6.5 /CUMM) 6.6 H Absolute Lymphocytes (1.2 - 3.4 /CUMM) 1.6 Absolute Monocytes (0.10 - 0.60 /CUMM) 0.9 H Absolute Eosinophils (0.0 - 0.7 /CUMM) 0.4 Absolute Basophils (0.0 - 0.2 /CUMM) 0 PUBS MCHC (33.0 - 37.0 G/DL) 32.8 L Last 24 Hours of [place] Results: Blood cultures 2 May 17 negative Diagnostic Data Recent Imaging Findings: Chest x-ray, personally reviewed, reveals airspace disease in the right lower lobe with a small pleural effusion. CT of the chest revealed a bandlike wedge-shaped opacity in the right lower lobe with air bronchograms and compressive atelectasis at both bases and moderate bilateral pleural effusions. Assessment/Plan Assessment/Plan Impression: This is an 86-year-old man with diabetes, recently hospitalized at [facility] and diagnosed with MRSA osteomyelitis of the left calcaneus, begun on Vancomycin via a PICC and discharged to a rehabilitation facility just 2 days prior to admission, admitted on May 17 with the acute onset of agitation, which appears to have resolved overnight, with no fever or leukocytosis on admission and found to have a right lower lobe density on chest x-ray and CT. Details regarding his recent hospitalization at [place] will be helpful to confirm the diagnosis of osteomyelitis, to obtain more data regarding his CBCs and chest x-rays. The right lower lobe density on chest x-ray could represent pneumonia, given his report of a cough and increased oxygen requirements, though he has no fever or significant leukocytosis. At this time, pending further information, the Vancomycin can be continued. The Vancomycin level from this morning appears to be a random level and is, therefore, of unclear significance. Of note he is quite anemic, which may be contributing to his hypoxia, and he will warrant further evaluation, particular with the report of "trace" guaiac- positive stools in the ER. Suggestion: 1. Obtain records from his recent hospitalization at [facility] 2. Obtain sputum culture if possible 3. Further evaluation and management of his anemia per Medicine 4. Continue Vancomycin at a dose of 1 g IV every 24 hours Meenu Paige MD will be covering until May 28 Consult Acknowledgment - Thank you for your consult request.
--- NOTE | 2016-05-18 19:09 | Cons- Psychiatry ---
Psychiatric Consult Date of Consult: 05/18/16 Reason for Consult: "Altered mental status. Aggressive behavior in elderly, new onset." History of Present Illness: This 86-year-old male was brought in by ambulance from [facility] on 2016 at 1238, having been discharged to that F from [facility], where he was treated for MRSA osteomyelitis of the left foot, and discharged this past Saturday and vancomycin via PICC. He had developed increasing agitation while at [place], which continued through this morning. On-call psychiatry was consulted on the evening of admission. Allergies: Coded Allergies: Penicillins (PER W-10 05/17/16) lactose (PER W-10 05/17/16) Current Medications: Current Medications Sig/Brigido Start time Last Medication Dose Route Stop Time Status Admin Acetaminophen 650 MG Q6P PRN 05/17 2100 AC PO Alteplase, 2 MG ONE ONE 05/18 0945 DC Recombinant IV 05/18 0946 Atorvastatin Calcium 80 MG 1700 05/18 1700 AC 05/18 PO 1735 Bisacodyl 10 MG DAILY NEEDED PRN 05/17 2230 AC SD Ciprofloxacin 400 MG ONCE ONE 05/17 2045 DC IV 05/17 2046 Diphenhydramine HCl 25 MG Q6P PRN 05/18 0230 AC IV Ferrous Sulfate 325 MG DAILY 05/18 1000 AC 05/18 PO 1054 Furosemide 40 MG DAILY 05/18 1000 AC 05/18 PO 1054 Gentamicin Sulfate 80 MG ONE ONE 05/17 2045 DC Dextrose/Water 100 ML IV 05/17 2114 Haloperidol 1 MG ONCE ONE 05/17 2230 DC 05/17 IM 05/17 2231 2305 Heparin Sodium 5,000 UNIT Q8 05/17 2200 AC 05/18 (Porcine) SC 1420 Ibuprofen 600 MG Q6P PRN 05/17 2100 AC PO Insulin Aspart 14 UNITS .STK-MED ONE 05/18 1313 DC SC 05/18 1314 Insulin Aspart 0 TIDAC 05/18 0800 AC 05/18 SC 1735 Insulin Aspart 14 UNITS ONCE ONE 05/18 0645 DC 05/18 SC 05/18 0646 0646 Insulin Detemir 25 UNITS QPM 05/18 2200 AC SC Insulin Detemir 10 UNITS ONCE ONE 05/18 0815 DC 05/18 SC 05/18 0816 0914 Ipratropium [place] 2.5 ML Q4-6 PRN PRN 05/17 2245 AC INH Magnesium Hydroxide 30 ML DAILY NEEDED PRN 05/17 2245 AC PO Meropenem 1 GM IQ8 05/18 0800 DC IV Metoprolol Tartrate 12.5 MG BID 05/18 1000 AC 05/18 PO 1055 Olanzapine 2.5 MG BID PRN 05/18 0915 AC PO Oxycodone/ 2 TAB Q6P PRN 05/17 2100 AC Acetaminophen PO Patient Medication 1 ED .STK-MED ONE 05/18 1322 DC Teaching ED 05/18 1323 Sertraline HCl 25 MG DAILY 05/18 1000 AC 05/18 PO 1054 Sodium Chloride 500 ML BOLUS ONE 05/18 0830 DC 05/18 IV 05/18 1509 0915 Tamsulosin HCl 0.4 MG QPM 05/18 2200 AC PO Vancomycin HCl 1,500 MG DAILY 05/18 1000 DC Dextrose/Water 250 ML IV Vancomycin HCl 1,500 MG DAILY 05/18 1000 AC Dextrose/Water 500 ML IV Vancomycin HCl 1,000 MG ONCE ONE 05/17 2045 DC 05/18 Dextrose/Water 250 ML IV 05/17 2144 0148 Past History Past Medical History Any Pertinent Medical History? 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 is motivated to return to healthy status Pt. is articulate Physical Limitations (Interventions): Pt.'s left side is weak. Pt. is a fall risk. Psychiatric Treatment History Psych Treatment Psychiatric Treatment No Inpatient Treatment No Outpatient Treatment No Location of Treatment - Reason for Treatment - Dates of Treatment - Response to Treatment - Diagnosis: Unknown Risk Factors: age (under 24/over 65), chronic/serious med cond., isolate/no social support, poor impulse control, male, limited support Substance Use/Abuse History Drug Use/Abuse Substances Used/Abused No First Use - Last Used - How much used/taken - How often - For how long - Route of use - Substance Abuse Treatment Substance Abuse Treatment Past Substance Abuse [place] No Location of Treatment - Reason for Treatment - Dates of Treatment - Response to Treatment - Assessment/Plan Mental Status Mental Status Exam: The patient is calm, alert, pleasant, oriented to person, off by one day, not oriented to place. He was seen this afternoon at 1635 in room 222. His supportive conservator of person, Mr. Sreekanth Velasco was present. The patient denies any feelings of depression or anxiety. He reports a history of visual hallucinations, including seeing a baby in his bed last January 2016, and on at least one other occasion before. He denies auditory hallucinations. The patient reports that he has reports sleep, "my mind is always going." The patient complains that he became angry with staff when they were trying to insert an IV. He recalls being upset this morning, but during this interview he is mostly calm, becoming somewhat animated when discussing his recent medical care. He denies suicidal or homicidal ideation. Lab Results: Laboratory Tests 05/18 05/18 1010 0827 Blood Gas pH (7.35 - 7.45 PH) 7.43 pCO2 (35 - 45 TORR) 33 L pO2 (80 - 100 TORR) 78 L HCO3 (21 - 28 MEQ/L) 21 ABG O2 Sat (Measured) (>96.0 %) 96.0 P-50 (Temp Corrected) YES Carboxyhemoglobin (1.5 - 5.0 %) 0.8 L O2 Concentration % 3.5L Temperature (97.0 - 100.0 FARH) 97.6 O2 Delivery Method NC Hematology ESR Westergren (0 - 10 MM) > 130 H Miscellaneous Phlebotomy Draw Site RIGHT RADIAL Toxicology Vancomycin Trough (10.0 - 20.0 ug/mL) 21.3 H 05/18 05/18 0700 0653 Chemistry Sodium (137 - 145 mmol/L) 136 L Potassium (3.5 - 5.1 mmol/L) 4.9 Chloride (98 - 107 mmol/L) 105 Carbon Dioxide (22 - 30 mmol/L) 21 L Anion Gap (5 - 16) 10 BUN (9 - 20 mg/dL) 20 Creatinine (0.7 - 1.2 mg/dL) 1.3 H Estimated GFR (>60 ml/min) 52 L BUN/Creatinine Ratio (7 - 25 %) 15.4 Glucose (65 - 99 mg/dL) 509 *H Hematology CBC w Diff NO MAN DIFF REQ WBC (4.8 - 10.8 /CUMM) 10.9 H RBC (4.70 - 6.10 /CUMM) 2.71 L Hgb (14.0 - 18.0 G/DL) 7.5 L Hct (42 - 52 %) 22.7 L MCV (80.0 - 94.0 FL) 83.6 MCH (27.0 - 31.0 PG) 27.5 RDW (11.5 - 14.5 %) 14.9 H Plt Count (130 - 400 /CUMM) 404 H MPV (7.4 - 10.4 FL) 7.3 L Gran % (42.2 - 75.2 %) 79.1 H Lymphocytes % (20.5 - 51.1 %) 10.2 L Monocytes % (1.7 - 9.3 %) 7.1 Eosinophils % (0 - 5 %) 3.3 Basophils % (0.0 - 2.0 %) 0.3 Absolute Granulocytes (1.4 - 6.5 /CUMM) 8.6 H Absolute Lymphocytes (1.2 - 3.4 /CUMM) 1.1 L Absolute Monocytes (0.10 - 0.60 /CUMM) 0.8 H Absolute Eosinophils (0.0 - 0.7 /CUMM) 0.4 Absolute Basophils (0.0 - 0.2 /CUMM) 0 PUBS MCHC (33.0 - 37.0 G/DL) 32.9 L Toxicology Acetone Level (NEGATIVE) NEGATIVE Urines Urinalysis LIGHT H Urine Color (YEL,AMB,STR) YEL Urine Clarity (CLEAR) CLEAR Urine pH (5.0 - 8.0) 6.0 Ur Specific [place] (1.001 - 1.035) 1.025 Urine Protein (NEG,<30 MG/DL) NEG Urine Ketones (NEG) NEG Urine Nitrite (NEG) NEG Urine Bilirubin (NEG) NEG Urine Urobilinogen (0.1 - 1.0 EU/dl) 0.2 Ur Leukocyte Esterase (NEG) NEG Ur Microscopic SEDIMENT EXAMINED Urine RBC (0 - 5 /HPF) RARE Urine WBC (0 - 2 /HPF) 5-10 H Urine Mucus (FEW,NONE) FEW Urine Hemoglobin (NEG) TRACE-INTACT H Urine Glucose (N MG/DL) >=1000 H 05/17 2014 Hematology CBC w Diff NO MAN DIFF REQ WBC (4.8 - 10.8 /CUMM) 9.5 RBC (4.70 - 6.10 /CUMM) 2.68 L Hgb (14.0 - 18.0 G/DL) 7.3 *L Hct (42 - 52 %) 22.3 L MCV (80.0 - 94.0 FL) 83.2 MCH (27.0 - 31.0 PG) 27.3 RDW (11.5 - 14.5 %) 15.1 H Plt Count (130 - 400 /CUMM) 440 H MPV (7.4 - 10.4 FL) 6.9 L Gran % (42.2 - 75.2 %) 68.7 Lymphocytes % (20.5 - 51.1 %) 17.1 L Monocytes % (1.7 - 9.3 %) 9.6 H Eosinophils % (0 - 5 %) 4.2 Basophils % (0.0 - 2.0 %) 0.4 Absolute Granulocytes (1.4 - 6.5 /CUMM) 6.6 H Absolute Lymphocytes (1.2 - 3.4 /CUMM) 1.6 Absolute Monocytes (0.10 - 0.60 /CUMM) 0.9 H Absolute Eosinophils (0.0 - 0.7 /CUMM) 0.4 Absolute Basophils (0.0 - 0.2 /CUMM) 0 PUBS MCHC (33.0 - 37.0 G/DL) 32.8 L Impression: Mr. Velasco, conservator of person, reports that the patient has stressors, including having a former [email or web address] [facility]'s house of all belongings, memorabilia, kaur , jewels, money and furniture. The court has since appointed a conservator of person, as well as a separate conservator door of the state. The patient is currently involved with the legal system trying to recover his property. The patient reports difficulty in getting to sleep. We discussed the risks and benefits of melatonin, as a first pharmaceutical step, which she is agreeable to try, and Mr. Velasco approves of this choice. At this time, we do not recommend other psychotropic interventions. I have left contact information and a card with Mr. Velasco, and have encouraged him to call to make an appointment at [facility] outpatient psychiatry. The patient is agreeable to the idea of having somebody talk to about his stressors. I informed them that they will also see a prescriber, but psychotropic medication is not mandatory. Provisional Treatment Plan: 1. Melatonin 3 mg by mouth at bedtime as needed for insomnia. We will look in on the patient again on 05/21/2016. Please reconsult over the weekend, if other psychiatric matters arise, by calling on-call psychiatry through the crisis office, [phone]. Thank you for asking us to participate in Giovanni's care. Marcos Brady APRN, pager [phone].
[2016-05-18 21:46] VITALS: BP 140/70
[2016-05-19 06:00] VITALS: BP 134/72
[2016-05-19 08:31] LABS: ABSOLUTE BASOPHIL COUNT 0.1 /CUMM (0.0-0.2); ABSOLUTE EOSINOPHIL COUNT 0.6 /CUMM (0.0-0.7); ABSOLUTE GRANULOCYTE CT 7.5 /CUMM (1.4-6.5); ABSOLUTE LYMPH COUNT 2.5 /CUMM (1.2-3.4); BASOPHIL % 0.5 % (0.0-2.0); EOSINOPHIL % 5.3 % (0-5); MEAN CORPUSCULAR HGB 27.3 PG (27.0-31.0); MEAN CORPUSCULAR HGB CONC 32.7 G/DL (33.0-37.0); MEAN CORPUSCULAR VOLUME 83.3 FL (80.0-94.0); MEAN PLATELET VOLUME 7.3 FL (7.4-10.4); PLATELET COUNT 503 /CUMM (130-400); RBC DISTRIBUTION WIDTH 14.6 % (11.5-14.5); WHITE BLOOD CELL COUNT 11.7 /CUMM (4.8-10.8)
--- NOTE | 2016-05-19 09:27 | PN- Att Addend ---
Attending Addendum Attending Brief Note Covering Attn Note Pt feels comfortable, no new complaints, on IV Vancomycin. VS stable S1 S2 N Lungs clear off Meropenem Ct IV Vanco check Ttough level
[2016-05-19 09:30] LABS: RED BLOOD CELL CT 1.92 /CUMM (4.70-6.10)
[2016-05-19 11:19] LABS: ABSOLUTE BASOPHIL COUNT 0 /CUMM (0.0-0.2); ABSOLUTE EOSINOPHIL COUNT 0.6 /CUMM (0.0-0.7); ABSOLUTE GRANULOCYTE CT 6.8 /CUMM (1.4-6.5); ABSOLUTE LYMPH COUNT 1.8 /CUMM (1.2-3.4); ABSOLUTE MONOCYTE COUNT 0.9 /CUMM (0.10-0.60); BASOPHIL % 0.3 % (0.0-2.0); EOSINOPHIL % 5.6 % (0-5); GRANULOCYTE % 67.7 % (42.2-75.2); MEAN CORPUSCULAR HGB 27.5 PG (27.0-31.0); MEAN CORPUSCULAR VOLUME 83.3 FL (80.0-94.0); PLATELET COUNT 457 /CUMM (130-400); RBC DISTRIBUTION WIDTH 14.8 % (11.5-14.5)
[2016-05-19 11:48] LABS: HEMATOCRIT 22.3 % (42-52); RED BLOOD CELL CT 2.68 /CUMM (4.70-6.10)
[2016-05-19 15:03] VITALS: BP 144/86
--- NOTE | 2016-05-19 15:35 | PN- Infect Dx ---
Subjective Subjective: Comfortable. No fever. Review of Systems Comments: 10 points reviewed as noted, otherwise negative. Objective Last 24 Hrs of Vital Signs/I&O Vital Signs Date Time Temp Pulse Resp B/P Pulse O2 O2 Flow FiO2 Ox Delivery Rate 05/19 1503 97.8 76 20 144/86 92 05/19 1121 77 134/72 05/19 0800 Room Air 05/19 0600 98.6 77 20 134/72 93 Nasal 3.0L Cannula 05/19 0000 Nasal 3.0L Cannula 05/18 2230 78 140/70 05/18 2229 78 140/70 05/18 2146 97.7 78 20 140/70 93 Intake & Output 05/19 1600 05/19 0800 05/19 0000 Intake Total 150 100 Output Total 950 400 Balance -800 -300 Intake, IV 50 Intake, Oral 100 100 Number 1 1 Bowel Movements Output, Urine 950 400 Patient 180 lb Weight Physical Exam Other Physical Findings: Gen: well nourished; no acute distress. He is afebrile. Skin reveals no rash. HEENT exam is negative. Neck is supple with no adenopathy. Lungs crackles at the right base. Heart regular rhythm with no murmur. Abdomen is soft, nontender with positive bowel sounds; suprapubic tube in place with no inflammation at the site. Back no CVA tenderness. Extremities ulcer on the posterior aspect of the left heel, with retention sutures in place, with no erythema or tenderness; left leg swelling compared to the right leg, with decreased pulses bilaterally; PICC in the left upper extremity with no inflammation at the site. Neuro is without focality. Results Last 24 Hours of Lab Results: Laboratory Tests 05/19 05/19 1030 0615 Chemistry Sodium (137 - 145 mmol/L) 142 Potassium (3.5 - 5.1 mmol/L) 4.1 Chloride (98 - 107 mmol/L) 107 Carbon Dioxide (22 - 30 mmol/L) 24 Anion Gap (5 - 16) 10 BUN (9 - 20 mg/dL) 16 Creatinine (0.7 - 1.2 mg/dL) 1.0 Estimated GFR (>60 ml/min) > 60 BUN/Creatinine Ratio (7 - 25 %) 16.0 Hematology CBC w Diff NO MAN DIFF REQ NO MAN DIFF REQ WBC (4.8 - 10.8 /CUMM) 10.0 11.7 H RBC (4.70 - 6.10 /CUMM) 2.68 L 1.92 L Hgb (14.0 - 18.0 G/DL) 7.4 *L 5.2 *L Hct (42 - 52 %) 22.3 L 16.0 *L MCV (80.0 - 94.0 FL) 83.3 83.3 MCH (27.0 - 31.0 PG) 27.5 27.3 RDW (11.5 - 14.5 %) 14.8 H 14.6 H Plt Count (130 - 400 /CUMM) 457 H 503 H MPV (7.4 - 10.4 FL) 7.0 L 7.3 L Gran % (42.2 - 75.2 %) 67.7 64.0 Lymphocytes % (20.5 - 51.1 %) 17.9 L 21.3 Monocytes % (1.7 - 9.3 %) 8.5 8.9 Eosinophils % (0 - 5 %) 5.6 H 5.3 H Basophils % (0.0 - 2.0 %) 0.3 0.5 Absolute Granulocytes (1.4 - 6.5 /CUMM) 6.8 H 7.5 H Absolute Lymphocytes (1.2 - 3.4 /CUMM) 1.8 2.5 Absolute Monocytes (0.10 - 0.60 /CUMM) 0.9 H 1.0 H Absolute Eosinophils (0.0 - 0.7 /CUMM) 0.6 0.6 Absolute Basophils (0.0 - 0.2 /CUMM) 0 0.1 PUBS MCHC (33.0 - 37.0 G/DL) 33.0 32.7 L Last 24 Hours of Simba Results: SPEC #: [id number] MAYELA: 05/17/16 STATUS: RES RECD: 05/17/[address]: DANIAL WATSON MD SOURCE: BLOOD ENTR: 05/17/[address]: MARYELLEN SMALLS,[place] Bravo SPDESC: 1ST/VENOUS CHARLEY SMALLS,[facility] ORDERED: BLOOD CULTURE Procedure Result > BLOOD CULTURE REPORT Preliminary 05/18/16-1233 No growth after 1 day incubation. Specimen is examined continuously for 5 days before final report unless culture becomes positive. Recent Imaging Studies: SERVICE DATE: 05/17/16 EXAM TYPE: RAD - XRY-PORTABLE CHEST XRAY EXAMINATION: XR PORTABLE CHEST CLINICAL INFORMATION: Shortness of breath and weakness COMPARISON: None TECHNIQUE: Portable AP view of the chest was obtained. FINDINGS: Left-sided central line with the tip at the confluence of the brachiocephalic and SVC. Cardiomegaly. Airspace opacity right lower lung with small right effusion suspicious for pneumonia in the appropriate clinical setting. IMPRESSION: Airspace disease right lower lung with small right effusion represent pneumonia in the appropriate clinical setting. Repeat chest x-ray after treatment is therefore recommended. DICTATED BY: CALEB ENCARNACION MD DATE/TIME DICTATED:05/17/161930 [employer] OPERATOR:LINDA DATE/TIME TRANSCRIBED:05/17/161930 CONFIDENTIAL, DO NOT COPY WITHOUT APPROPRIATE AUTHORIZATION. <Electronically signed in Other Vendor System> SIGNED BY: CALEB ENCARNACION MD 05/17/161934 Assessment/Plan Impression: 86-year-old man with diabetes, recently hospitalized at [facility] and diagnosed with MRSA osteomyelitis of the left calcaneus, begun on Vancomycin via a PICC and discharged to a rehabilitation facility just 2 days prior to admission, admitted on May 17 with the acute onset of agitation, which appears to have resolved overnight, with no fever or leukocytosis on admission and found to have a right lower lobe density on chest x-ray and CT. Details regarding his recent hospitalization at [facility] will be helpful to confirm the diagnosis of osteomyelitis, to obtain more data regarding his CBCs and chest x-rays. The right lower lobe density on chest x-ray could represent pneumonia, given his report of a cough and increased oxygen requirements, though he has no fever or significant leukocytosis. At this time, pending further information, the Vancomycin can be continued. Anemia, which may be contributing to his hypoxia, and he will warrant further evaluation, particular with the report of "trace" guaiac-positive stools in the ER. Suggestion: 1. Obtain records from his recent hospitalization at [facility] 2. Obtain sputum culture if productive cough 3. Further evaluation and management of his anemia per Medicine 4. Continue Vancomycin at a dose of 1 g IV every 24 hours; vanco trough in am.
[2016-05-19 23:00] VITALS: BP 136/72
[2016-05-20 06:46] VITALS: BP 130/74
--- NOTE | 2016-05-20 08:27 | PN- Housestaff ---
Subjective Follow-up For: Altered mental status Pneumonia Osteomyelitis Subjective: Patient seen and examined. He is seen lying flat in his bed resting comfortably. He appears to be in no acute distress. When asked if he has any complaints or is in any pain he dismisses the question and says "leave me alone ". When told his blood counts are low this morning and he may require blood he is dismissive and says "ask the doctor". Any further questioning was declined by patient. Review of systems unobtainable. No overnight events reported. Review of Systems Constitutional: Reports: see HPI. Objective Last 24 Hrs of Vital Signs/I&O Vital Signs Date Time Temp Pulse Resp B/P Pulse O2 O2 Flow FiO2 Ox Delivery Rate 05/20 1033 130/70 05/20 0800 Nasal 2.0L Cannula 05/20 0646 98.1 87 18 130/74 93 Room Air 05/20 0000 93 Nasal 2.0L Cannula 05/19 2300 99.1 83 20 136/72 93 Nasal 2.0L Cannula 05/19 2149 83 136/72 05/19 2149 83 136/72 05/19 1503 97.8 76 20 144/86 92 Intake & Output 05/20 1600 05/20 0800 05/20 0000 Intake Total 140 220 Output Total 250 400 Balance -110 -180 Intake, IV 40 Intake, Oral 100 220 Number 0 2 Bowel Movements Output, Urine 250 400 Physical Exam General Appearance: Alert, No Acute Distress Other Physical Findings: General -well-developed, somnolent/agitated elderly male in no acute distress HEENT - NCAT, PERRL, EOMI, anicteric sclera Cardio - S1, S2 w/o murmurs/gallops/rubs Resp - CTA bilaterally w/o wheezing/rhochi/crackles GI -examination declined Neuro -somnolent, agitated, limited neurologic exam Extremities -examination declined Current Medications: Current Medications Sig/Brigido Start time Last Medication Dose Route Stop Time Status Admin Acetaminophen 650 MG Q6P PRN 05/17 2100 AC PO Atorvastatin Calcium 80 MG 1700 05/18 1700 AC 05/19 PO 1806 Bisacodyl 10 MG DAILY NEEDED PRN 05/17 2230 AC VA Diphenhydramine HCl 25 MG Q6P PRN 05/18 0230 AC IV Ferrous Sulfate 325 MG DAILY 05/18 1000 AC 05/20 PO 1034 Furosemide 40 MG DAILY 05/18 1000 AC 05/20 PO 1034 Heparin Sodium 5,000 UNIT Q8 05/17 2200 AC 05/20 (Porcine) SC 0614 Ibuprofen 600 MG Q6P PRN 05/17 2100 AC PO Insulin Aspart 0 TIDAC 05/18 0800 AC 05/20 SC 1219 Insulin Detemir 25 UNITS QPM 05/18 2200 AC 05/19 SC 2136 Ipratropium [place] 2.5 ML Q4-6 PRN PRN 05/17 2245 AC INH Magnesium Hydroxide 30 ML DAILY NEEDED PRN 05/17 2245 AC PO Magnesium Sulfate 1 GM Q2H 05/20 1130 AC Dextrose/Water 100 ML IV 05/20 1529 Melatonin 5 MG AT BEDTIME NEED.. 05/19 0030 AC 05/19 PO 2148 Metoprolol Tartrate 12.5 MG BID 05/18 1000 AC 05/20 PO 1033 Olanzapine 2.5 MG BID PRN 05/18 0915 AC PO Oxycodone/ 2 TAB Q6P PRN 05/17 2100 AC Acetaminophen PO Sertraline HCl 25 MG DAILY 05/18 1000 AC 05/20 PO 1033 Tamsulosin HCl 0.4 MG QPM 05/18 2200 AC 05/19 PO 2149 Vancomycin HCl 1,250 MG DAILY 05/21 1000 UNir Dextrose/Water 250 ML IV Vancomycin HCl 1,000 MG DAILY 05/19 1000 DC 05/20 Dextrose/Water 250 ML IV 1033 Last 24 Hrs of Lab/Simba Results Last 24 Hrs of Labs/Mics: Laboratory Tests 05/20/16 0815: Anion Gap 9, Estimated GFR > 60, BUN/Creatinine Ratio 18.2, Magnesium 1.4 L, CBC w Diff NO MAN DIFF REQ, RBC 2.54 L, MCV 83.2, MCH 27.1, RDW 14.9 H, MPV 6.9 L, Gran % 67.9, Lymphocytes % 18.3 L, Monocytes % 8.5, Eosinophils % 4.9, Basophils % 0.4, Absolute Granulocytes 7.2 H, Absolute Lymphocytes 1.9, Absolute Monocytes 0.9 H, Absolute Eosinophils 0.5, Absolute Basophils 0, PUBS MCHC 32.6 L, Vancomycin Trough 12.9 Microbiology 05/19 1630 STOOL: Clostridium difficile Toxin A & B - RECD Assessment/Plan Assessment: Patient is agitated and somnolent upon examination and interview this morning declining to answer most questions and physical examination. He is continued on vancomycin for which the dose was increased to 1.25 g daily for a subtherapeutic vancomycin troph. He remained afebrile without leukocytosis. His hemoglobin has been persistently low and when this was explained to the patient that he may require any blood transfusions he dismissed the question asked me to leave the room. He further declined to discuss any possible blood product transfusion. Problem list: -Altered mental status/agitation -Right lower lobe pneumonia -Left foot osteomyelitis -Acute on chronic anemia -Insulin dependent diabetes mellitus -Hypertension, on metoprolol -Hyperlipidemia, on Lipitor Plan: -General medicine -Monitor vital signs for hemodynamic instability and fever -Supplemental oxygen, goal greater than 92%, taper as tolerated -Continue home meds -Vancomycin 1.25 g IV daily -Accu-Cheks 3 times a day before meals/at bedtime -NovoLog/Levemir -ID consult -Podiatry consult -Wound care -Psych consult -Pain pathway/Bowel regimen -Diabetic diet -DVT prophylaxis -DNR/DNI -Daily CBC, BEP Problem List: 1. Pneumonia Pain Ratin Pain Location: None Pain Goal: Pain 4 or less Pain Plan: As noted in plan Tomorrow's Labs & Rationales: Complete blood count Basic electrolyte panel ESR
[2016-05-20 09:20] LABS: ABSOLUTE BASOPHIL COUNT 0 /CUMM (0.0-0.2); ABSOLUTE EOSINOPHIL COUNT 0.5 /CUMM (0.0-0.7); ABSOLUTE GRANULOCYTE CT 7.2 /CUMM (1.4-6.5); ABSOLUTE LYMPH COUNT 1.9 /CUMM (1.2-3.4); ABSOLUTE MONOCYTE COUNT 0.9 /CUMM (0.10-0.60); BASOPHIL % 0.4 % (0.0-2.0); EOSINOPHIL % 4.9 % (0-5); GRANULOCYTE % 67.9 % (42.2-75.2); HEMATOCRIT 21.1 % (42-52); MEAN CORPUSCULAR HGB 27.1 PG (27.0-31.0); MEAN CORPUSCULAR HGB CONC 32.6 G/DL (33.0-37.0); MEAN CORPUSCULAR VOLUME 83.2 FL (80.0-94.0); MEAN PLATELET VOLUME 6.9 FL (7.4-10.4); PLATELET COUNT 489 /CUMM (130-400); RBC DISTRIBUTION WIDTH 14.9 % (11.5-14.5); RED BLOOD CELL CT 2.54 /CUMM (4.70-6.10); WHITE BLOOD CELL COUNT 10.6 /CUMM (4.8-10.8)
--- NOTE | 2016-05-20 09:27 | PN- Att Addend ---
Attending Addendum Attending Brief Note Covering attending note. Patient is fairly stable denies any complaints. Laboratory Tests 05/20 05/19 0815 1030 Chemistry Sodium (137 - 145 mmol/L) 142 Potassium (3.5 - 5.1 mmol/L) 4.2 Chloride (98 - 107 mmol/L) 109 H Carbon Dioxide (22 - 30 mmol/L) 24 Anion Gap (5 - 16) 9 BUN (9 - 20 mg/dL) 20 Creatinine (0.7 - 1.2 mg/dL) 1.1 Estimated GFR (>60 ml/min) > 60 BUN/Creatinine Ratio (7 - 25 %) 18.2 Magnesium (1.6 - 2.3 mg/dL) 1.4 L Hematology CBC w Diff Pending NO MAN DIFF REQ WBC (4.8 - 10.8 /CUMM) Pending 10.0 RBC (4.70 - 6.10 /CUMM) Pending 2.68 L Hgb (14.0 - 18.0 G/DL) Pending 7.4 *L Hct (42 - 52 %) Pending 22.3 L MCV (80.0 - 94.0 FL) Pending 83.3 MCH (27.0 - 31.0 PG) Pending 27.5 RDW (11.5 - 14.5 %) Pending 14.8 H Plt Count (130 - 400 /CUMM) Pending 457 H MPV (7.4 - 10.4 FL) Pending 7.0 L Gran % (42.2 - 75.2 %) 67.7 Lymphocytes % (20.5 - 51.1 %) 17.9 L Monocytes % (1.7 - 9.3 %) 8.5 Eosinophils % (0 - 5 %) 5.6 H Basophils % (0.0 - 2.0 %) 0.3 Absolute Granulocytes (1.4 - 6.5 /CUMM) 6.8 H Absolute Lymphocytes (1.2 - 3.4 /CUMM) 1.8 Absolute Monocytes (0.10 - 0.60 /CUMM) 0.9 H Absolute Eosinophils (0.0 - 0.7 /CUMM) 0.6 Absolute Basophils (0.0 - 0.2 /CUMM) 0 PUBS MCHC (33.0 - 37.0 G/DL) Pending 33.0 Toxicology Vancomycin Trough (10.0 - 20.0 ug/mL) 12.9 Microbiology Date/Time Procedure - Status Source Growth 05/19 1630 Clostridium difficile Toxin A & B - RECD STOOL Vital Signs Date Time Temp Pulse Resp B/P Pulse O2 O2 Flow FiO2 Ox Delivery Rate 05/20 0646 98.1 87 18 130/74 93 Room Air 05/20 0000 93 Nasal 2.0L Cannula 05/19 2300 99.1 83 20 136/72 93 Nasal 2.0L Cannula 05/19 2149 83 136/72 05/19 2149 83 136/72 05/19 1503 97.8 76 20 144/86 92 05/19 1121 77 134/72 Intake & Output 05/20 1600 05/20 0800 05/20 0000 Intake Total 140 220 Output Total 250 400 Balance -110 -180 Intake, IV 40 Intake, Oral 100 220 Number 0 2 Bowel Movements Output, Urine 250 400 On examination Patient is comfortable Neck is supple JVD is not raised S1-S2 is normal Lungs diminished breath sound both bases Abdomen is soft nontender bowel sounds are present. Assessment #1 chest x-ray shows questionable right lower lobe pneumonia continue with IV vancomycin per recommendations of ID #2 is ostium myelitis of the left foot currently on IV vancomycin with a set rate of more than 1:30 #3 history of diabetes cover the glucose with the sliding scale and currently Lantus 50 units subcutaneous at bedtime
--- NOTE | 2016-05-20 12:23 | PN- Infect Dx ---
Subjective Subjective: No fever, comfortable. No productive cough. Review of Systems Comments: 10 points reviewed as noted, otherwise negative. Objective Last 24 Hrs of Vital Signs/I&O Vital Signs Date Time Temp Pulse Resp B/P Pulse O2 O2 Flow FiO2 Ox Delivery Rate 05/20 1033 130/70 05/20 0800 Nasal 2.0L Cannula 05/20 0646 98.1 87 18 130/74 93 Room Air 05/20 0000 93 Nasal 2.0L Cannula 05/19 2300 99.1 83 20 136/72 93 Nasal 2.0L Cannula 05/19 2149 83 136/72 05/19 2149 83 136/72 05/19 1503 97.8 76 20 144/86 92 Intake & Output 05/20 1600 05/20 0800 05/20 0000 Intake Total 140 220 Output Total 250 400 Balance -110 -180 Intake, IV 40 Intake, Oral 100 220 Number 0 2 Bowel Movements Output, Urine 250 400 Physical Exam Other Physical Findings: Gen: well nourished; no acute distress. He is afebrile. Skin reveals no rash. HEENT exam is negative. Neck is supple with no adenopathy. Lungs crackles at the right base. Heart regular rhythm with no murmur. Abdomen is soft, nontender with positive bowel sounds; suprapubic tube in place with no inflammation at the site. No CVA tenderness. Extremities ulcer on the posterior aspect of the left heel, decreased pulses bilaterally; PICC in the left upper extremity with no inflammation at the site. Neuro is without focality. Results Last 24 Hours of Lab Results: Laboratory Tests 05/20 0815 Chemistry Sodium (137 - 145 mmol/L) 142 Potassium (3.5 - 5.1 mmol/L) 4.2 Chloride (98 - 107 mmol/L) 109 H Carbon Dioxide (22 - 30 mmol/L) 24 Anion Gap (5 - 16) 9 BUN (9 - 20 mg/dL) 20 Creatinine (0.7 - 1.2 mg/dL) 1.1 Estimated GFR (>60 ml/min) > 60 BUN/Creatinine Ratio (7 - 25 %) 18.2 Magnesium (1.6 - 2.3 mg/dL) 1.4 L Hematology CBC w Diff NO MAN DIFF REQ WBC (4.8 - 10.8 /CUMM) 10.6 RBC (4.70 - 6.10 /CUMM) 2.54 L Hgb (14.0 - 18.0 G/DL) 6.9 *L Hct (42 - 52 %) 21.1 L MCV (80.0 - 94.0 FL) 83.2 MCH (27.0 - 31.0 PG) 27.1 RDW (11.5 - 14.5 %) 14.9 H Plt Count (130 - 400 /CUMM) 489 H MPV (7.4 - 10.4 FL) 6.9 L Gran % (42.2 - 75.2 %) 67.9 Lymphocytes % (20.5 - 51.1 %) 18.3 L Monocytes % (1.7 - 9.3 %) 8.5 Eosinophils % (0 - 5 %) 4.9 Basophils % (0.0 - 2.0 %) 0.4 Absolute Granulocytes (1.4 - 6.5 /CUMM) 7.2 H Absolute Lymphocytes (1.2 - 3.4 /CUMM) 1.9 Absolute Monocytes (0.10 - 0.60 /CUMM) 0.9 H Absolute Eosinophils (0.0 - 0.7 /CUMM) 0.5 Absolute Basophils (0.0 - 0.2 /CUMM) 0 PUBS MCHC (33.0 - 37.0 G/DL) 32.6 L Toxicology Vancomycin Trough (10.0 - 20.0 ug/mL) 12.9 Last 24 Hours of Simba Results: atient : SHAWN NELSON Acct: [id number] DR: GELA WHITEHEAD MD Birthdate: [birth year] Age/Sex: 86/M Unit: [id number] Loc: 2NA [phone] Status : ADM IN SPEC #: [id number] MAYELA: 05/19/16 STATUS: RECD RECD: 05/19/[address] [facility] [address]: IRLANDA SMALLS,[facility] SOURCE: STOOL ENTR: 05/19/[address]: MARYELLEN SMALLS,[place] Bravo [facility] GELA WHITEHEAD MD ORDERED: C.DIFFICILE EIA COMMENT: Has pt had antimicrobial/antineoplastic rx in past 4-6wks? Y Has pt had abd pain, fever, or constipation? N Procedure Result C.DIFFICILE EIA PENDING Recent Imaging Studies: n/a Assessment/Plan Impression: 86-year-old man with diabetes, recently hospitalized at [facility] and diagnosed with MRSA osteomyelitis of the left calcaneus, begun on Vancomycin via a PICC and discharged to a rehabilitation facility 2 days prior to admission, admitted on May 17 with the acute onset of agitation, which appears to have resolved overnight, with no fever or leukocytosis on admission and found to have a right lower lobe density on chest x-ray and CT. Details regarding his recent hospitalization at [facility] (will be helpful to confirm the diagnosis of osteomyelitis, to obtain more data regarding his CBCs and chest x-rays). Pending further information, the Vancomycin continued. Anemia work up per team. Suggestion: 1. Obtain records from his recent hospitalization at [facility] 2. CBC, BMP, ESR in am. 3. Local wound care. 4. Continue Vancomycin at a dose of 1.25 g IV every 24 hours; vanco trough ~12; goal vancomycin 15-20.
[2016-05-20 14:52] VITALS: BP 144/80
[2016-05-20 21:26] VITALS: BP 140/80
[2016-05-21 06:30] VITALS: BP 140/76
--- NOTE | 2016-05-21 06:57 | PN- Housestaff ---
Subjective Follow-up For: Altered mental status Left foot osteomyelitis Subjective: Patient seen and evaluated at bedside this AM. He reports he feels well and slept well throughout the night. He denies fever, cough, shortness of breath, abdominal pain or left foot pain. Review of Systems Constitutional: Denies: chills, fever. EENTM: Denies: blurred vision. Cardiovascular: Denies: chest pain. Respiratory: Denies: cough, short of breath, sputum production. Gastrointestinal: Denies: abdominal pain. Genitourinary: Reports: no symptoms. Musculoskeletal: Denies: joint pain (Denies left foot pain). Skin: Denies: rash. Neurological/Psychological: Denies: confusion, headache. Hematologic/Endocrine: Denies: bruising. Immunologic/Allergic: Denies: splenectomy. Objective Last 24 Hrs of Vital Signs/I&O Vital Signs Date Time Temp Pulse Resp B/P Pulse O2 O2 Flow FiO2 Ox Delivery Rate 05/21 0630 98.6 91 20 140/76 93 Nasal Cannula 05/21 0000 Nasal 2.0L Cannula 05/20 2219 98.3 86 20 140/80 05/20 2218 98.3 86 20 140/80 05/20 2126 98.3 86 20 140/80 91 Nasal 2.0L Cannula 05/20 1600 Nasal 2.0L Cannula 05/20 1452 98.9 76 20 144/80 94 05/20 1033 130/70 Intake & Output 05/21 1600 05/21 0800 05/21 0000 Intake Total 120 480 Output Total 675 750 Balance -555 -270 Intake, Oral 120 480 Number 1 3 Bowel Movements Output, Urine 675 750 Physical Exam General Appearance: Alert, Oriented X3, Cooperative, No Acute Distress Skin: Left foot covered in dry kerlex, Lef floot plantar ulcer and achilles heel wound, noted coccyx wound. HEENT: Atraumatic, Mucous Membr. moist/pink Neck: Supple Lymphatic: Cervical nl Cardiovascular: Regular Rate, Normal S1, Normal S2 Lungs: Normal Air Movement Abdomen: Normal Bowel Sounds, Soft, No Tenderness Neurological: Normal Speech, Normal Tone Extremities: No Clubbing, No Cyanosis Current Medications: Current Medications Sig/Brigido Start time Last Medication Dose Route Stop Time Status Admin Acetaminophen 650 MG Q6P PRN 05/17 2100 AC PO Atorvastatin Calcium 80 MG 1700 05/18 1700 AC 05/20 PO 1655 Bisacodyl 10 MG DAILY NEEDED PRN 05/17 2230 AC MT Diphenhydramine HCl 25 MG Q6P PRN 05/18 0230 AC IV Ferrous Sulfate 325 MG DAILY 05/18 1000 AC 05/20 PO 1034 Furosemide 40 MG DAILY 05/18 1000 AC 05/20 PO 1034 Heparin Sodium 5,000 UNIT Q8 05/17 2200 AC 05/21 (Porcine) SC 0547 Ibuprofen 600 MG Q6P PRN 05/17 2100 AC PO Insulin Aspart 0 TIDAC 05/18 0800 AC 05/20 SC 1701 Insulin Detemir 25 UNITS QPM 05/18 2200 AC 05/20 SC 2219 Ipratropium Closplint 2.5 ML Q4-6 PRN PRN 05/17 2245 AC INH Magnesium Hydroxide 30 ML DAILY NEEDED PRN 05/17 2245 AC PO Magnesium Sulfate 1 GM Q2H 05/20 1130 DC 05/20 Dextrose/Water 100 ML IV 05/20 1529 1655 Melatonin 5 MG AT BEDTIME NEED.. 05/19 0030 AC 05/19 PO 2148 Metoprolol Tartrate 12.5 MG BID 05/18 1000 AC 05/20 PO 2218 Olanzapine 2.5 MG BID PRN 05/18 0915 AC PO Oxycodone/ 2 TAB Q6P PRN 05/17 2100 AC Acetaminophen PO Sertraline HCl 25 MG DAILY 05/18 1000 AC 05/20 PO 1033 Tamsulosin HCl 0.4 MG QPM 05/18 2200 AC 05/20 PO 2219 Vancomycin HCl 1,250 MG DAILY 05/21 1000 AC Dextrose/Water 250 ML IV Vancomycin HCl 1,000 MG DAILY 05/19 1000 DC 05/20 Dextrose/Water 250 ML IV 1033 Orders Radiology Findings: CXR: IMPRESSION: Airspace disease right lower lung with small right effusion represent pneumonia in the appropriate clinical setting. Repeat chest x-ray after treatment is therefore recommended. Miscellaneous Findings: Chest CT: IMPRESSION: 1. Bandlike wedge-shaped opacity right lower lobe with mild adjacent groundglass attenuation may represent evolving pneumonia. Differential possibility includes atelectasis. 2. Bilateral pleural effusions with associated compression atelectasis, right slightly greater than left. 3. Ascending aortic aneurysm measuring approximately 5.3 cm. 4. Moderate pericardial effusion. 5. Mildly prominent reactive nodes noted in the mediastinum. 6. Small hiatal hernia. Assessment/Plan Assessment: Mr. Nino is a 86 year old male with PMH hypertension, hyperlipidemia, diabetes mellitus, GERD, BPH status post suprapubic catheter placement and recent hospital admission for MRSA osteomyelitis of left foot with PICC line in place who was sent in from extended care facility for altered mental status and aggressive behavior. In the ED: VS showed blood pressure 137/70, pulse 91, temperature 96.5, RR 15 and O2 saturation of 87% on RA. Labs showed WBC of 9.4, H&H of 7.1 and 21.5 which is rough from 9.4 on July 2015, and a thrombocytosis of 410 from baseline of 296. His BP was almost normal except BUN 21, glucose was high at 306, calcium 8.2 albumin 2.7 and toxicology was normal. His guaiac is trace C positive according to the emergency department attending Dr. Casiano. CXR showed RLL pneumonia with small right effusion. Patient was admitted to the general medicine floor and the following is the management: 1. Possible RLL PNA * Patient has no clinical signs of PNA, lungs CTA, normal air movement * CXR is suggestive of RLL and patient has since required nasal cannula at 2 L due to decreasing O2 sats, incentive spirometry added * IV meropenem given night of admission, this has been discontinued and we are currently holding off on abx for PNA 2. Left foot osteomyelitis * PICC line in place, continue IV vanco (goal trough = 15-20) * [facility] show polymicrpbial infection with enterococcus, bacteroides, corynebacterium and MRSA * We have reconsulted podiatry to evaluate for possible surgical intervention and repeat imaging, will f/u rec's * ID consult placed, suggest continuing IV vanco 1.25 g Q12 h with goal trough 15-20 (day #5 inhouse vanco) * ESR >130 * Wound consult with Dr. Lewis appreciated, continue offloading mattress and Aquacel Ag with wound cleansing 3. Agitation * Patient noted to be agitated on admission, this has since resolved and patient AAOx3 and acting appropriately * We have added zyprexa 2.5 mg PO BID as needed for agitation 4. DM * Accuchecks TID AC/HS * Home lantus is 50 mg SC QPM, we have restarted at 25 mg SC QPM and go up to 50 if FSGs remain uncontrolled * NSS TIDAC 5. HTN, HLD * Vital signs Q shift * Metoprolol 12.5 mg PO BID * Lasix 40 mg PO daily * Lipitor 80 mg PO daily 6. Anemia * H&H noted to be low to 6.9/21.1 yesterday, patient refusing blood transfusion * AM CBC stable to 7.2/22.0, continue to monitor * F/U repeat stool guiac today as he has had 1 positive and 1 negative guiac 7. Coccyx stage 1 pressure ulcer present on admission * 1x1cm ulcer present on admission * Other areas of ulceration include left plantar portion of foot and achilles heel DNR/DNI Diet: CC2 DVTP: Heparin SC Mild pain pathway Problem List: 1. Agitation 2. Diabetes 3. HLD (hyperlipidemia) 4. HTN (hypertension) 5. Suprapubic catheter 6. Foot osteomyelitis, left 7. Pneumonia 8. BPH (benign prostatic hyperplasia) Pain Ratin Pain Location: n/a Pain Goal: Remain pain free Pain Plan: Percocet for severe pain, motrin for moderate pain, tylenol for mild pain. Tomorrow's Labs & Rationales: CBC (monitor H&H in setting of acute anemia and active infection), Magnesium ( hypomagnesemia)
--- NOTE | 2016-05-21 08:20 | PN- Wound Care ---
Subjective Subjective: Patient appears to be more alert and focused. Data from [facility] is pending. Sedimentation rate remains markedly elevated. Objective Vital Signs and I&Os Vital Signs Result Date Time Pulse Ox 93 05/21 629 B/P 140/76 05/21 629 O2 Delivery Nasal Cannula 05/21 629 Temp 98.6 05/21 629 Pulse 91 05/21 0530 Resp 20 05/21 629 O2 Flow Rate 2.0L 05/21 0000 Intake & Output 05/21 0000 05/20 1600 05/20 0800 Intake Total 480 480 140 Output Total 750 350 250 Balance -270 130 -110 Intake, IV 40 Intake, Oral 480 480 100 Number 3 0 Bowel Movements Output, Urine 750 350 250 Wound over the calcaneus and Achilles continues to drain significant yellow- green drainage. Surgical wound remains open with sutures present. Impression/Plan Impression/Plan Impression/Plan: 86-year-old gentleman who by history is had MRSA ostia of the left calcaneus status post apparent debridement with a nonhealing surgical wound present on admission. The amount of drainage is worrisome for persistent osteomyelitis. Recommend obtaining old records from prior hospitalization as well as imaging. Assess sedimentation rate. Wound care should be offloading and use of Aquacel Ag with wound cleansing. Podiatry evaluation would be appropriate. Review old records for evidence of prior vascular evaluation. Continue offloading of the heel and Aquacel Ag await records from [facility] and further imaging to decide whether further debridement is necessary
--- NOTE | 2016-05-21 09:21 | PN- Att Addend ---
See Addendum Attending Addendum Attending Brief Note Patient has no complaints this morning General Appearance: Alert, No Acute Distress Skin: Grossly normal HEENT: PEERLA Neck: Supple, No JVD Cardiovascular: Regular Rate, Normal S1, Normal S2, No Murmurs Lungs: Clear to Auscultation, Normal Air Movement Abdomen: Normal Bowel Sounds, Soft, No Tenderness Neurological: Normal Speech, Strength at 5/5 X4 Ext, Cranial Nerves 3-12 NL, Reflexes 2+ Extremities: left foot wounds with drainage Vascular: Normal Pulses Assessment 86-year-old male with history of hypertension, diabetes, dyslipidemia, acid reflux, BPH with suprapubic catheter with a recent hospitalization for MRSA osteomyelitis involving left foot. CAT scan chest suggested right lower consolidation however there are no clear signs of clinical pneumonia, at this point vancomycin continued for treatment of osteomyelitis. Medical records from [facility] suggest polymicrobial infection including MRSA however there is no mentioning of surgical intervention or any relevant imaging. Plan Discuss with podiatry regarding surgical intervention and imaging Continue vancomycin Zyprexa 2.5 mg twice a day when necessary agitation Continue other home meds including insulin Accu-Cheks 3 times a day before meals DVT prophylaxis Current Medications Sig/Brigido Start time Last Medication Dose Route Stop Time Status Admin Acetaminophen 650 MG Q6P PRN 05/17 2100 AC PO Atorvastatin Calcium 80 MG 1700 05/18 1700 AC 05/20 PO 1655 Bisacodyl 10 MG DAILY NEEDED PRN 05/17 2230 AC WI Diphenhydramine HCl 25 MG Q6P PRN 05/18 0230 AC IV Ferrous Sulfate 325 MG DAILY 05/18 1000 AC 05/20 PO 1034 Furosemide 40 MG DAILY 05/18 1000 AC 05/20 PO 1034 Heparin Sodium 5,000 UNIT Q8 05/17 2200 AC 05/21 (Porcine) SC 0547 Ibuprofen 600 MG Q6P PRN 05/17 2100 AC PO Insulin Aspart 0 TIDAC 05/18 0800 AC 05/21 SC 0849 Insulin Detemir 25 UNITS QPM 05/18 2200 AC 05/20 SC 2219 Ipratropium [place] 2.5 ML Q4-6 PRN PRN 05/17 2245 AC INH Magnesium Hydroxide 30 ML DAILY NEEDED PRN 05/17 2245 AC PO Magnesium Sulfate 1 GM Q2H 05/20 1130 DC 05/20 Dextrose/Water 100 ML IV 05/20 1529 1655 Melatonin 5 MG AT BEDTIME NEED.. 05/19 0030 AC 05/19 PO 2148 Metoprolol Tartrate 12.5 MG BID 05/18 1000 AC 05/20 PO 2218 Olanzapine 2.5 MG BID PRN 05/18 0915 AC PO Oxycodone/ 2 TAB Q6P PRN 05/17 2100 AC Acetaminophen PO Sertraline HCl 25 MG DAILY 05/18 1000 AC 05/20 PO 1033 Tamsulosin HCl 0.4 MG QPM 05/18 2200 AC 05/20 PO 2219 Vancomycin HCl 1,250 MG DAILY 05/21 1000 AC Dextrose/Water 250 ML IV Vancomycin HCl 1,000 MG DAILY 05/19 1000 DC 05/20 Dextrose/Water 250 ML IV 1033 Vital Signs Date Time Temp Pulse Resp B/P Pulse O2 O2 Flow FiO2 Ox Delivery Rate 05/21 0630 98.6 91 20 140/76 93 Nasal Cannula 05/21 0000 Nasal 2.0L Cannula 05/20 2218 98.3 86 20 140/80 05/20 2217 98.3 86 20 140/80 05/20 2125 98.3 86 20 140/80 91 Nasal 2.0L Cannula 05/20 1600 Nasal 2.0L Cannula 05/20 1452 98.9 76 20 144/80 94 05/20 1033 130/70
[2016-05-21 10:03] LABS: ABSOLUTE BASOPHIL COUNT 0.1 /CUMM (0.0-0.2); ABSOLUTE EOSINOPHIL COUNT 0.5 /CUMM (0.0-0.7); ABSOLUTE MONOCYTE COUNT 0.9 /CUMM (0.10-0.60); BASOPHIL % 0.5 % (0.0-2.0); EOSINOPHIL % 4.7 % (0-5); MEAN CORPUSCULAR HGB 27.3 PG (27.0-31.0); MEAN PLATELET VOLUME 7.1 FL (7.4-10.4); RBC DISTRIBUTION WIDTH 14.9 % (11.5-14.5)
[2016-05-21 10:21] LABS: ABSOLUTE GRANULOCYTE CT 7.2 /CUMM (1.4-6.5); ABSOLUTE LYMPH COUNT 1.8 /CUMM (1.2-3.4); GRANULOCYTE % 68.9 % (42.2-75.2); MEAN CORPUSCULAR HGB CONC 32.7 G/DL (33.0-37.0); MEAN CORPUSCULAR VOLUME 83.6 FL (80.0-94.0); PLATELET COUNT 521 /CUMM (130-400); RED BLOOD CELL CT 2.64 /CUMM (4.70-6.10); WHITE BLOOD CELL COUNT 10.5 /CUMM (4.8-10.8)
[2016-05-21 13:36] VITALS: BP 120/60
--- NOTE | 2016-05-21 14:38 | PN- Infect Dx ---
Subjective Subjective: Patient feeling better; no fever; no abd pain; DFoley patent; good appetite. Family at bedside Review of Systems Comments: 10 points reviewed as noted, otherwise negative. Objective Last 24 Hrs of Vital Signs/I&O Vital Signs Date Time Temp Pulse Resp B/P Pulse O2 O2 Flow FiO2 Ox Delivery Rate 05/21 1336 98.7 74 18 120/60 100 Nasal 1.0L Cannula 05/21 1302 Nasal 1.0L Cannula 05/21 1109 128/70 05/21 0800 Nasal 1.0L Cannula 05/21 0630 98.6 91 20 140/76 93 Nasal Cannula 05/21 0000 Nasal 2.0L Cannula 05/20 2219 98.3 86 20 140/80 05/20 2218 98.3 86 20 140/80 05/20 2126 98.3 86 20 140/80 91 Nasal 2.0L Cannula 05/20 1600 Nasal 2.0L Cannula 05/20 1452 98.9 76 20 144/80 94 Intake & Output 05/21 1600 05/21 0800 05/21 0000 Intake Total 120 480 Output Total 400 675 750 Balance -400 -555 -270 Intake, Oral 120 480 Number 1 3 Bowel Movements Output, Urine 400 675 750 Physical Exam Other Physical Findings: Gen: well nourished; no acute distress. He is afebrile. Skin reveals no rash. HEENT exam is negative. Neck is supple with no adenopathy. Lungs crackles at the right base. Heart regular rhythm with no murmur. Abdomen is soft, nontender with positive bowel sounds; suprapubic tube in place with no inflammation at the site. No CVA tenderness. Extremities ulcer on the posterior aspect of the left heel, decreased pulses bilaterally; PICC in the left upper extremity with no inflammation at the site. Neuro is without focality. Results Last 24 Hours of Lab Results: Laboratory Tests 05/21 0720 Chemistry Sodium (137 - 145 mmol/L) 141 Potassium (3.5 - 5.1 mmol/L) 4.6 Chloride (98 - 107 mmol/L) 104 Carbon Dioxide (22 - 30 mmol/L) 23 Anion Gap (5 - 16) 14 BUN (9 - 20 mg/dL) 19 Creatinine (0.7 - 1.2 mg/dL) 1.2 Estimated GFR (>60 ml/min) 58 L BUN/Creatinine Ratio (7 - 25 %) 15.8 Magnesium (1.6 - 2.3 mg/dL) 1.6 Hematology CBC w Diff NO MAN DIFF REQ WBC (4.8 - 10.8 /CUMM) 10.5 RBC (4.70 - 6.10 /CUMM) 2.64 L Hgb (14.0 - 18.0 G/DL) 7.2 *L Hct (42 - 52 %) 22.0 L MCV (80.0 - 94.0 FL) 83.6 MCH (27.0 - 31.0 PG) 27.3 RDW (11.5 - 14.5 %) 14.9 H Plt Count (130 - 400 /CUMM) 521 H MPV (7.4 - 10.4 FL) 7.1 L Gran % (42.2 - 75.2 %) 68.9 Lymphocytes % (20.5 - 51.1 %) 17.2 L Monocytes % (1.7 - 9.3 %) 8.7 Eosinophils % (0 - 5 %) 4.7 Basophils % (0.0 - 2.0 %) 0.5 Absolute Granulocytes (1.4 - 6.5 /CUMM) 7.2 H Absolute Lymphocytes (1.2 - 3.4 /CUMM) 1.8 Absolute Monocytes (0.10 - 0.60 /CUMM) 0.9 H Absolute Eosinophils (0.0 - 0.7 /CUMM) 0.5 Absolute Basophils (0.0 - 0.2 /CUMM) 0.1 PUBS MCHC (33.0 - 37.0 G/DL) 32.7 L ESR Westergren (0 - 10 MM) > 130 H Last 24 Hours of Simba Results: SPEC #: [id number] MAYELA: 05/19/16 STATUS: COMP RECD: 05/19/[address] [facility] [address]: IRLANDA SMALLS,[facility] SOURCE: STOOL ENTR: 05/19/16-[address]: MARYELLEN SMALLS,[place] [facility] CHARLEY SMALLS,[facility] ORDERED: C.DIFFICILE EIA COMMENT: Has pt had antimicrobial/antineoplastic rx in past 4-6wks? Y Has pt had abd pain, fever, or constipation? N Procedure Result > C. DIFFICILE TOXIN A & B EIA Final 05/20/16-1408 NEGATIVE FOR CLOSTRIDIUM DIFFICILE TOXINS A & B BY EIA Recent Imaging Studies: n/a Assessment/Plan Impression: 86-year-old man with diabetes, recently hospitalized at [facility] and diagnosed with MRSA osteomyelitis of the left calcaneus, begun on Vancomycin via a PICC on 05/16/16 and admitted on May 17 from [facility] with the acute onset of agitation. Currently clinically improved. Abx associated diarrhea (C. difficile infection ruled out). Details regarding his recent hospitalization at [place] reviewed; started iv vancomycin on 05/16/2016. Elevated ESR Anemia work up per team. Suggestion: 1. F/u Dr. Schaefer's recom; ? repeat X ray ? if further debridment obtain bone cx. 2. CBC, BMP, ESR weekly. 3. Local wound care. 4. Continue Vancomycin at a dose of 1.25 g IV every 24 hours; vanco trough ~12; goal vancomycin 15-20. Repeat vanco trough 05/22 in am.
[2016-05-21 23:53] VITALS: BP 101/54
--- NOTE | 2016-05-22 04:58 | PN- Housestaff ---
Subjective Follow-up For: Altered mental status Left foot osteomyelitis Subjective: patient is sleeping in bed, wakes up when called his name, oriented3, reports no complaints, no pain on the left foot, no SOB, fever or cough. Review of Systems Constitutional: Denies: chills, fever, weakness. EENTM: Reports: blurred vision. Denies: visual changes. Cardiovascular: Denies: chest pain, palpitations, peripheral edema. Respiratory: Denies: cough, short of breath, sputum production. Gastrointestinal: Reports: no symptoms. Genitourinary: Reports: no symptoms. Musculoskeletal: Reports: no symptoms. Objective Last 24 Hrs of Vital Signs/I&O Vital Signs Date Time Temp Pulse Resp B/P Pulse O2 O2 Flow FiO2 Ox Delivery Rate 05/22 0757 97.8 71 20 120/68 92 Nasal 3.0L Cannula 05/22 0000 Nasal 1.5L Cannula 05/21 2353 99.0 88 20 101/54 90 Nasal Cannula 05/21 2155 88 110/60 05/21 2155 88 110/60 05/21 1754 Nasal 1.0L Cannula 05/21 1600 Nasal 2.0L Cannula 05/21 1336 98.7 74 18 120/60 100 Nasal 1.0L Cannula 05/21 1302 Nasal 1.0L Cannula 05/21 1109 128/70 Intake & Output 05/22 1600 05/22 0800 05/22 0000 Intake Total 100 240 Output Total 1200 Balance -1100 240 Intake, Oral 100 240 Output, Urine 1200 Physical Exam General Appearance: Alert, Oriented X3, Cooperative, No Acute Distress Skin: left foot covered in dry kerlex, left foot plantar ulcer and achilles heel wound, coccyx wound HEENT: Atraumatic, PERRLA, Mucous Membr. moist/pink Neck: Supple Cardiovascular: Regular Rate, Normal S1, Normal S2, No Murmurs Lungs: Normal Air Movement, mild rhonchi on the right lung Abdomen: Normal Bowel Sounds, Soft, No Tenderness Neurological: Normal Speech, Normal Tone Extremities: No Clubbing, No Edema, Normal Pulses Vascular: Normal Pulses, Pulses Symmetrical Last 24 Hrs of Lab/Simba Results Last 24 Hrs of Labs/Mics: Laboratory Tests 05/22/16 0800: Vancomycin Trough Cancelled 05/22/16 0610: Magnesium 1.5 L, CBC w Diff Pending, WBC Pending, RBC Pending, Hgb Pending, Hct Pending, MCV Pending, MCH Pending, RDW Pending, Plt Count Pending, MPV Pending, Gran % Pending, Lymphocytes % Pending, Monocytes % Pending, Eosinophils % Pending, Basophils % Pending, Absolute Granulocytes Pending, Absolute Lymphocytes Pending, Absolute Monocytes Pending, Absolute Eosinophils Pending, Absolute Basophils Pending, PUBS MCHC Pending, Vancomycin Trough 14.7 Assessment/Plan Assessment: Mr. Nino is a 86 year old male with PMH hypertension, hyperlipidemia, diabetes mellitus, GERD, BPH status post suprapubic catheter placement and recent hospital admission for MRSA osteomyelitis of left foot with PICC line in place who was sent in from extended care facility for altered mental status and aggressive behavior. In the ED: VS showed blood pressure 137/70, pulse 91, temperature 96.5, RR 15 and O2 saturation of 87% on RA. Labs showed WBC of 9.4, H&H of 7.1 and 21.5 which is rough from 9.4 on July 2015, and a thrombocytosis of 410 from baseline of 296. His BP was almost normal except BUN 21, glucose was high at 306, calcium 8.2 albumin 2.7 and toxicology was normal. His guaiac is trace C positive according to the emergency department attending Dr. Casiano. CXR showed RLL pneumonia with small right effusion. Patient was admitted to the general medicine floor and the following is the management: 1. Possible RLL PNA * Patient has no clinical signs of PNA, lungs CTA, normal air movement * CXR is suggestive of RLL and patient has since required nasal cannula at 2 L due to decreasing O2 sats, incentive spirometry added * IV meropenem given night of admission, this has been discontinued and we are currently holding off on abx for PNA 2. Left foot osteomyelitis * PICC line in place, continue IV vanco (goal trough = 15-20) * [facility] show polymicrpbial infection with enterococcus, bacteroides, corynebacterium and MRSA * We have reconsulted podiatry to evaluate for possible surgical intervention and repeat imaging, will f/u rec's * ID consult placed, suggest continuing IV vanco 1.25 g Q12 h with goal trough 15-20 (day #5 inhouse vanco) * ESR >130 * Wound consult with Dr. Lewis appreciated, continue offloading mattress and Aquacel Ag with wound cleansing 3. Agitation * Patient noted to be agitated on admission, this has since resolved and patient AAOx3 and acting appropriately * We have added zyprexa 2.5 mg PO BID as needed for agitation 4. DM * Accuchecks TID AC/HS * Home lantus is 50 mg SC QPM, we have restarted at 25 mg SC QPM and go up to 50 if FSGs remain uncontrolled * NSS TIDAC 5. HTN, HLD * Vital signs Q shift * Metoprolol 12.5 mg PO BID * Lasix 40 mg PO daily * Lipitor 80 mg PO daily 6. Anemia * H&H noted to be low to 6.9/21.1 yesterday, patient refusing blood transfusion * AM CBC stable to 7.2/22.0, continue to monitor * F/U repeat stool guiac today as he has had 1 positive and 1 negative guiac 7. Coccyx stage 1 pressure ulcer present on admission * 1x1cm ulcer present on admission * Other areas of ulceration include left plantar portion of foot and achilles heel DNR/DNI Diet: CC2 DVTP: Heparin SC Mild pain pathway Problem List: 1. Agitation 2. Pneumonia 3. Foot osteomyelitis, left 4. HLD (hyperlipidemia) 5. HTN (hypertension) 6. Diabetes Pain Ratin Pain Location: no pain Pain Goal: Pain 4 or less Pain Plan: tylenol, ibuprofen Tomorrow's Labs & Rationales: CBC (osteomyelitis, anemia)
[2016-05-22 07:57] VITALS: BP 120/68
[2016-05-22 07:57] LABS: ABSOLUTE BASOPHIL COUNT 0 /CUMM (0.0-0.2); ABSOLUTE EOSINOPHIL COUNT 0.3 /CUMM (0.0-0.7); ABSOLUTE GRANULOCYTE CT 8.4 /CUMM (1.4-6.5); ABSOLUTE LYMPH COUNT 1.9 /CUMM (1.2-3.4); BASOPHIL % 0.2 % (0.0-2.0); EOSINOPHIL % 2.4 % (0-5); GRANULOCYTE % 71.9 % (42.2-75.2); MEAN CORPUSCULAR HGB 27.5 PG (27.0-31.0); MEAN CORPUSCULAR HGB CONC 33.4 G/DL (33.0-37.0); MEAN CORPUSCULAR VOLUME 82.4 FL (80.0-94.0); MEAN PLATELET VOLUME 6.9 FL (7.4-10.4); PLATELET COUNT 477 /CUMM (130-400); RBC DISTRIBUTION WIDTH 15.5 % (11.5-14.5); RED BLOOD CELL CT 2.64 /CUMM (4.70-6.10); WHITE BLOOD CELL COUNT 11.7 /CUMM (4.8-10.8)
--- NOTE | 2016-05-22 08:06 | PN- Wound Care ---
Subjective Subjective: Data from [facility] reviewed. Patient had polymicrobial osteomyelitis of the calcaneus. He continues to have copious drainage which the setting of a elevated sedimentation rate suggests persistent osteomyelitis. Objective Vital Signs and I&Os Vital Signs Result Date Time Pulse Ox 92 05/22 756 B/P 120/68 05/22 756 O2 Delivery Nasal Cannula 05/22 756 O2 Flow Rate 3.0L 05/22 756 Temp 97.8 05/22 756 Pulse 71 05/22 756 Resp 20 05/22 756 Intake & Output 05/22 0000 05/21 1600 05/21 0800 Intake Total 240 950 120 Output Total 600 675 Balance 240 350 -555 Intake, IV 250 Intake, Oral 240 700 120 Number 1 Bowel Movements Output, Urine 600 675 Heel wound continues to have copious drainage. There is no evidence of wound improvement. Sutures remain in place. Impression/Plan Impression/Plan Impression/Plan: 86-year-old gentleman who by history is had MRSA ostia of the left calcaneus status post apparent debridement with a nonhealing surgical wound present on admission. Elevated sedimentation rate and persistent drainage suggest continued active osteomyelitis. Await decision by podiatry regarding the need for reexploration and possible further debridement. Continue Aquacel Ag daily and offloading of the area
[2016-05-22 09:01] LABS: HEMATOCRIT 21.8 % (42-52)
--- NOTE | 2016-05-22 09:59 | PN- Att Addend ---
Attending Addendum Attending Brief Note Patient has no complaints this morning General Appearance: Alert, No Acute Distress Skin: Grossly normal HEENT: PEERLA Neck: Supple, No JVD Cardiovascular: Regular Rate, Normal S1, Normal S2, No Murmurs Lungs: Clear to Auscultation, Normal Air Movement Abdomen: Normal Bowel Sounds, Soft, No Tenderness Neurological: Normal Speech, Strength at 5/5 X4 Ext, Cranial Nerves 3-12 NL, Reflexes 2+ Extremities: left foot wounds with drainage Vascular: Normal Pulses Assessment 86-year-old male with history of hypertension, diabetes, dyslipidemia, acid reflux, BPH with suprapubic catheter with a recent hospitalization for MRSA osteomyelitis involving left foot. CAT scan chest suggested right lower consolidation however there are no clear signs of clinical pneumonia, at this point vancomycin continued for treatment of osteomyelitis. Medical records from [facility] suggest polymicrobial infection including MRSA with debridement. Plan Discuss with podiatry regarding surgical intervention and imaging Continue vancomycin Zyprexa 2.5 mg twice a day when necessary agitation Continue other home meds including insulin Accu-Cheks 3 times a day before meals DVT prophylaxis Current Medications Sig/Brigido Start time Last Medication Dose Route Stop Time Status Admin Acetaminophen 650 MG Q6P PRN 05/17 2100 AC PO Atorvastatin Calcium 80 MG 1700 05/18 1700 AC 05/21 PO 1733 Bisacodyl 10 MG DAILY NEEDED PRN 05/17 2230 AC AZ Diphenhydramine HCl 25 MG Q6P PRN 05/18 0230 AC IV Ferrous Sulfate 325 MG TID 05/21 1000 AC 05/22 PO 0937 Furosemide 40 MG DAILY 05/18 1000 AC 05/22 PO 0938 Heparin Sodium 5,000 UNIT Q8 05/17 2200 AC 05/22 (Porcine) SC 0657 Ibuprofen 600 MG Q6P PRN 05/17 2100 AC PO Insulin Aspart 0 TIDAC 05/18 0800 AC 05/21 SC 1733 Insulin Detemir 25 UNITS QPM 05/18 2200 AC 05/21 SC 2155 Ipratropium [place] 2.5 ML Q4-6 PRN PRN 05/17 2245 AC INH Magnesium Hydroxide 30 ML DAILY NEEDED PRN 05/17 2245 AC PO Magnesium Sulfate 1 GM Q2H 05/22 0830 AC Dextrose/Water 100 ML IV 05/22 1229 Melatonin 5 MG AT BEDTIME NEED.. 05/19 0030 AC 05/21 PO 2155 Metoprolol Tartrate 12.5 MG BID 05/18 1000 AC 05/22 PO 0938 Olanzapine 2.5 MG BID PRN 05/18 0915 AC PO Oxycodone/ 2 TAB Q6P PRN 05/17 2100 AC Acetaminophen PO Patient Medication 1 ED .STK-MED ONE 05/21 1419 [facility] Teaching ED 05/21 1420 Sertraline HCl 25 MG DAILY 05/18 1000 AC 05/22 PO 0937 Tamsulosin HCl 0.4 MG QPM 05/18 2200 AC 05/21 PO 215 Vancomycin HCl 1,250 MG DAILY 05/21 1000 AC 05/21 Dextrose/Water 250 ML IV 1109 Laboratory Tests 05/22 05/22 0800 0610 Chemistry Magnesium (1.6 - 2.3 mg/dL) 1.5 L Hematology CBC w Diff NO MAN DIFF REQ WBC (4.8 - 10.8 /CUMM) 11.7 H RBC (4.70 - 6.10 /CUMM) 2.64 L Hgb (14.0 - 18.0 G/DL) 7.3 *L Hct (42 - 52 %) 21.8 L MCV (80.0 - 94.0 FL) 82.4 MCH (27.0 - 31.0 PG) 27.5 RDW (11.5 - 14.5 %) 15.5 H Plt Count (130 - 400 /CUMM) 477 H MPV (7.4 - 10.4 FL) 6.9 L Gran % (42.2 - 75.2 %) 71.9 Lymphocytes % (20.5 - 51.1 %) 16.6 L Monocytes % (1.7 - 9.3 %) 8.9 Eosinophils % (0 - 5 %) 2.4 Basophils % (0.0 - 2.0 %) 0.2 Absolute Granulocytes (1.4 - 6.5 /CUMM) 8.4 H Absolute Lymphocytes (1.2 - 3.4 /CUMM) 1.9 Absolute Monocytes (0.10 - 0.60 /CUMM) 1.0 H Absolute Eosinophils (0.0 - 0.7 /CUMM) 0.3 Absolute Basophils (0.0 - 0.2 /CUMM) 0 PUBS MCHC (33.0 - 37.0 G/DL) 33.4 Toxicology Vancomycin Trough (10.0 - 20.0 ug/mL) Cancelled 14.7 Vital Signs Date Time Temp Pulse Resp B/P Pulse O2 O2 Flow FiO2 Ox Delivery Rate 05/22 0938 82 124/70 05/22 0757 97.8 71 20 120/68 92 Nasal 3.0L Cannula 05/22 0000 Nasal 1.5L Cannula 05/21 2353 99.0 88 20 101/54 90 Nasal Cannula 05/21 2155 88 110/60 05/21 2155 88 110/60 05/21 1754 Nasal 1.0L Cannula 05/21 1600 Nasal 2.0L Cannula 05/21 1336 98.7 74 18 120/60 100 Nasal 1.0L Cannula 05/21 1302 Nasal 1.0L Cannula 05/21 1109 128/70
--- NOTE | 2016-05-22 13:58 | PN- Infect Dx ---
Subjective Subjective: No fever or chills. No cough or abdomninal pain. Review of Systems Comments: 10 points reviewed as noted, otherwise negative. Objective Last 24 Hrs of Vital Signs/I&O Vital Signs Date Time Temp Pulse Resp B/P Pulse O2 O2 Flow FiO2 Ox Delivery Rate 05/22 1129 Nasal 1.0L Cannula 05/22 0938 82 124/70 05/22 0757 97.8 71 20 120/68 92 Nasal 3.0L Cannula 05/22 0000 Nasal 1.5L Cannula 05/21 2353 99.0 88 20 101/54 90 Nasal Cannula 05/21 2155 88 110/60 05/21 2155 88 110/60 05/21 1754 Nasal 1.0L Cannula 05/21 1600 Nasal 2.0L Cannula Intake & Output 05/22 1600 05/22 0800 05/22 0000 Intake Total 100 240 Output Total 1200 Balance -1100 240 Intake, Oral 100 240 Output, Urine 1200 Physical Exam Other Physical Findings: Gen: well nourished; no acute distress. He is afebrile. Skin reveals no rash. HEENT exam is negative. Neck is supple with no adenopathy. Lungs crackles at the right base. Heart regular rhythm with no murmur. Abdomen is soft, nontender with positive bowel sounds; suprapubic tube in place with no inflammation at the site. No CVA tenderness. Extremities ulcer on the posterior aspect of the left heel, decreased pulses bilaterally; PICC in the left upper extremity with no inflammation at the site. Neuro is without focality. Results Last 24 Hours of Lab Results: Laboratory Tests 05/22 05/22 0800 0610 Chemistry Magnesium (1.6 - 2.3 mg/dL) 1.5 L Hematology CBC w Diff NO MAN DIFF REQ WBC (4.8 - 10.8 /CUMM) 11.7 H RBC (4.70 - 6.10 /CUMM) 2.64 L Hgb (14.0 - 18.0 G/DL) 7.3 *L Hct (42 - 52 %) 21.8 L MCV (80.0 - 94.0 FL) 82.4 MCH (27.0 - 31.0 PG) 27.5 RDW (11.5 - 14.5 %) 15.5 H Plt Count (130 - 400 /CUMM) 477 H MPV (7.4 - 10.4 FL) 6.9 L Gran % (42.2 - 75.2 %) 71.9 Lymphocytes % (20.5 - 51.1 %) 16.6 L Monocytes % (1.7 - 9.3 %) 8.9 Eosinophils % (0 - 5 %) 2.4 Basophils % (0.0 - 2.0 %) 0.2 Absolute Granulocytes (1.4 - 6.5 /CUMM) 8.4 H Absolute Lymphocytes (1.2 - 3.4 /CUMM) 1.9 Absolute Monocytes (0.10 - 0.60 /CUMM) 1.0 H Absolute Eosinophils (0.0 - 0.7 /CUMM) 0.3 Absolute Basophils (0.0 - 0.2 /CUMM) 0 PUBS MCHC (33.0 - 37.0 G/DL) 33.4 Toxicology Vancomycin Trough (10.0 - 20.0 ug/mL) Cancelled 14.7 Last 24 Hours of Simba Results: EC #: [id number] MAYELA: 05/19/16 STATUS: COMP RECD: 05/19/[address]: IRLANDA SMALLS,MICHELLE SOURCE: STOOL ENTR: 05/19/[address]: MARYELLEN SMALLS,[place] ELAM: GELA WHITEHEAD MD ORDERED: C.DIFFICILE EIA COMMENT: Has pt had antimicrobial/antineoplastic rx in past 4-6wks? Y Has pt had abd pain, fever, or constipation? N Procedure Result > C. DIFFICILE TOXIN A & B EIA Final 05/20/16 NEGATIVE FOR CLOSTRIDIUM DIFFICILE TOXINS A & B BY EIA Recent Imaging Studies: EC #: [id number] MAYELA: 05/19/16 STATUS: COMP RECD: 05/19/[address]: IRLANDA SMALLS,MICHELLE SOURCE: STOOL ENTR: 05/19/[address]: MARYELLEN SMALLS,[place] ELAM: GELA WHITEHEAD MD ORDERED: C.DIFFICILE EIA COMMENT: Has pt had antimicrobial/antineoplastic rx in past 4-6wks? Y Has pt had abd pain, fever, or constipation? N Procedure Result > C. DIFFICILE TOXIN A & B EIA Final 05/20/16 NEGATIVE FOR CLOSTRIDIUM DIFFICILE TOXINS A & B BY EIA Assessment/Plan Impression: 86-year-old man with diabetes, recently hospitalized at [facility] and diagnosed with MRSA osteomyelitis of the left calcaneus, begun on Vancomycin via a PICC on 05/16/16 and admitted on May 17 from [facility]. Abx associated diarrhea (C. difficile infection ruled out). Details regarding his recent hospitalization at [place] reviewed; started iv vancomycin on 05/16/2016. Elevated ESR; OM L calcaneus in need for debridement; failing to imrove. Mild leukocytosis Suggestion: 1. F/u Dr. Schaefer's recom; debridement/bone culture in [facility]. 2. Trend CBC, BMP. 3. Local wound care. Nutrition per team. 4. Continue Vancomycin at a dose of 1.25 g IV every 24 hours;goal vancomycin 15 -20. Repeat vanco trough today is therapeutic 14.7; cont current dosing; repeat vancomycin level 05/24.
[2016-05-22 15:25] VITALS: BP 118/60
[2016-05-22] MEDS ORDERED: OLANZAPINE2.5 M1 PO (17:07)
[2016-05-22] MEDS ORDERED: NOVOLOG100 UNIT/2 SC (17:20)
[2016-05-22] MEDS ORDERED: MELATONIN5 M7 PO (17:20)
[2016-05-22] MEDS ORDERED: LEVEMIR100 UNIT/1 SC (17:20)
[2016-05-22] MEDS ORDERED: VANCOMYCIN HCL1 G1 IV (17:20)
[2016-05-22] MEDS ORDERED: FERROUS SULFAT325 M2 PO (17:24)
[2016-05-22 21:41] VITALS: BP 118/68
[2016-05-23 06:30] VITALS: BP 122/68
--- NOTE | 2016-05-23 07:01 | PN- Housestaff ---
Subjective Follow-up For: Left foot osteomyelitis Altered mental status Anemia Subjective: Patient is awake and alert in no distress, endorses no complaints except for the mild pain on the right lower rib cage. On SB, no chest pain, no palpitation or dizziness. no pain n the left foot. Review of Systems Constitutional: Denies: chills, malaise, weakness. EENTM: Reports: no symptoms. Cardiovascular: Denies: chest pain, palpitations, peripheral edema. Respiratory: Reports: no symptoms. Gastrointestinal: Denies: abdominal pain, changes in stool. Genitourinary: Reports: no symptoms. Musculoskeletal: Reports: no symptoms. Skin: Reports: no symptoms. Neurological/Psychological: Denies: headache, weakness. Hematologic/Endocrine: Reports: no symptoms. Objective Last 24 Hrs of Vital Signs/I&O Vital Signs Date Time Temp Pulse Resp B/P Pulse O2 O2 Flow FiO2 Ox Delivery Rate 05/23 0932 78 118/78 05/23 0800 Nasal 1.5L Cannula 05/23 0630 98.1 87 20 122/68 91 Nasal 2.0L Cannula 05/23 0000 Nasal 1.5L Cannula 05/22 2141 97.8 80 20 118/68 92 05/22 2135 88 118/68 05/22 2134 88 118/68 05/22 1525 97.8 79 20 118/60 92 Nasal 1.5L Cannula Intake & Output 05/23 1600 05/23 0800 05/23 0000 Intake Total 100 240 Output Total 650 500 Balance -550 -260 Intake, IV 0 Intake, Oral 100 240 Number 2 1 Bowel Movements Output, Urine 650 500 Physical Exam General Appearance: Alert, Oriented X3, Cooperative, No Acute Distress Skin: No Significant Lesion, suprapubic catheter in place, no tenderness and erythema noted. HEENT: Atraumatic, EOMI Neck: Supple Cardiovascular: Regular Rate, Normal S1, Normal S2, No Murmurs Lungs: Clear to Auscultation, Normal Air Movement Abdomen: Normal Bowel Sounds, Soft, No Tenderness Neurological: Normal Speech, Normal Tone Extremities: No Edema, Normal Pulses, left foot ulcer, dressed with kerlix, appears dry. Vascular: Normal Pulses, Pulses Symmetrical Current Medications: Current Medications Sig/Brigido Start time Last Medication Dose Route Stop Time Status Admin Acetaminophen 650 MG Q6P PRN 05/17 2100 AC PO Atorvastatin Calcium 80 MG 1700 05/18 1700 AC 05/22 PO 1733 Bisacodyl 10 MG DAILY NEEDED PRN 05/17 2230 AC ID Diphenhydramine HCl 25 MG Q6P PRN 05/18 0230 AC IV Ferrous Sulfate 325 MG TID 05/21 1000 AC 05/23 PO 0928 Furosemide 40 MG DAILY 05/18 1000 AC 05/23 PO 0928 Heparin Sodium 5,000 UNIT Q8 05/17 2200 AC 05/23 (Porcine) SC 0553 Ibuprofen 600 MG Q6P PRN 05/17 2100 AC PO Insulin Aspart 0 TIDAC 05/18 0800 AC 05/23 SC 1200 Insulin Detemir 30 UNITS QPM 05/22 2200 AC 05/22 SC 2133 Insulin Detemir 25 UNITS QPM 05/18 2200 DC 05/21 SC 2155 Ipratropium [place] 2.5 ML Q4-6 PRN PRN 05/17 2245 AC INH Magnesium Hydroxide 30 ML DAILY NEEDED PRN 05/17 2245 AC PO Melatonin 5 MG AT BEDTIME NEED.. 05/19 0030 AC 05/21 PO 2155 Metoprolol Tartrate 12.5 MG BID 05/18 1000 AC 05/23 PO 0932 Olanzapine 2.5 MG BID PRN 05/18 0915 AC PO Oxycodone/ 2 TAB Q6P PRN 05/17 2100 AC Acetaminophen PO Patient Medication 1 ED .STK-MED ONE 05/23 1407 [place] Teaching ED 05/23 1408 Sertraline HCl 25 MG DAILY 05/18 1000 AC 05/23 PO 0932 Tamsulosin HCl 0.4 MG QPM 05/18 2200 AC 05/22 PO 213 Vancomycin HCl 1,250 MG DAILY 05/21 1000 AC 05/23 Dextrose/Water 250 ML IV 1005 Last 24 Hrs of Lab/Simba Results Last 24 Hrs of Labs/Mics: Laboratory Tests 05/23/16 0610: Magnesium 1.6, CBC w Diff NO MAN DIFF REQ, RBC 2.73 L, MCV 83.2, MCH 27.6, RDW 15.0 H, MPV 7.1 L, Gran % 69.5, Lymphocytes % 17.5 L, Monocytes % 9.3, Eosinophils % 3.4, Basophils % 0.3, Absolute Granulocytes 8.2 H, Absolute Lymphocytes 2.1, Absolute Monocytes 1.1 H, Absolute Eosinophils 0.4, Absolute Basophils 0, PUBS MCHC 33.1 Assessment/Plan Assessment: Mr. Nino is a 86 year old male with PMH hypertension, hyperlipidemia, diabetes mellitus, GERD, BPH status post suprapubic catheter placement and recent hospital admission for MRSA osteomyelitis of left foot with PICC line in place who was sent in from extended care facility for altered mental status and aggressive behavior. In the ED: VS showed blood pressure 137/70, pulse 91, temperature 96.5, RR 15 and O2 saturation of 87% on RA. Labs showed WBC of 9.4, H&H of 7.1 and 21.5 which is rough from 9.4 on July 2015, and a thrombocytosis of 410 from baseline of 296. His BP was almost normal except BUN 21, glucose was high at 306, calcium 8.2 albumin 2.7 and toxicology was normal. His guaiac is trace C positive according to the emergency department attending Dr. Casiano. CXR showed RLL pneumonia with small right effusion. Patient was admitted to the general medicine floor and the following is the management: 1. Possible RLL PNA * Patient has no clinical signs of PNA, lungs CTA, normal air movement * CXR is suggestive of RLL and patient has since required nasal cannula at 2 L due to decreasing O2 sats, incentive spirometry added * IV meropenem given night of admission, this has been discontinued and we are currently holding off on abx for PNA 2. Left foot osteomyelitis * PICC line in place, continue IV vanco (goal trough = 15-20) * [facility] show polymicrpbial infection with enterococcus, bacteroides, corynebacterium and MRSA * We have reconsulted podiatry to evaluate for possible surgical intervention and repeat imaging, will f/u rec's * ID consult placed, suggest continuing IV vanco 1.25 g Q12 h with goal trough 15-20 (day #5 inhouse vanco) * ESR >130 * Wound consult with Dr. Lewis appreciated, continue offloading mattress and Aquacel Ag with wound cleansing 3. Agitation * Patient noted to be agitated on admission, this has since resolved and patient AAOx3 and acting appropriately * We have added zyprexa 2.5 mg PO BID as needed for agitation 4. DM * Accuchecks TID AC/HS * Home lantus is 50 mg SC QPM, we have restarted at 25 mg SC QPM and go up to 50 if FSGs remain uncontrolled * NSS TIDAC 5. HTN, HLD * Vital signs Q shift * Metoprolol 12.5 mg PO BID * Lasix 40 mg PO daily * Lipitor 80 mg PO daily 6. Anemia * H&H noted to be low to 6.9/21.1 yesterday, patient refusing blood transfusion * AM CBC stable to 7.2/22.0, continue to monitor * F/U repeat stool guiac today as he has had 1 positive and 1 negative guiac 7. Coccyx stage 1 pressure ulcer present on admission * 1x1cm ulcer present on admission * Other areas of ulceration include left plantar portion of foot and achilles heel DNR/DNI Diet: CC2 DVTP: Heparin SC Mild pain pathway Problem List: 1. Diabetes 2. Suprapubic catheter 3. Foot osteomyelitis, left Pain Ratin Pain Location: no pain Pain Goal: Pain 4 or less Pain Plan: mild pain pathway Tomorrow's Labs & Rationales: none, patient is diacharged
[2016-05-23 07:48] LABS: ABSOLUTE BASOPHIL COUNT 0 /CUMM (0.0-0.2); ABSOLUTE EOSINOPHIL COUNT 0.4 /CUMM (0.0-0.7); ABSOLUTE GRANULOCYTE CT 8.2 /CUMM (1.4-6.5); ABSOLUTE LYMPH COUNT 2.1 /CUMM (1.2-3.4); ABSOLUTE MONOCYTE COUNT 1.1 /CUMM (0.10-0.60); BASOPHIL % 0.3 % (0.0-2.0); EOSINOPHIL % 3.4 % (0-5); GRANULOCYTE % 69.5 % (42.2-75.2); HEMATOCRIT 22.7 % (42-52); MEAN CORPUSCULAR HGB 27.6 PG (27.0-31.0); MEAN CORPUSCULAR HGB CONC 33.1 G/DL (33.0-37.0); MEAN CORPUSCULAR VOLUME 83.2 FL (80.0-94.0); MEAN PLATELET VOLUME 7.1 FL (7.4-10.4); PLATELET COUNT 485 /CUMM (130-400); RED BLOOD CELL CT 2.73 /CUMM (4.70-6.10); WHITE BLOOD CELL COUNT 11.8 /CUMM (4.8-10.8)
[2016-05-23 09:32] VITALS: BP 118/78
--- NOTE | 2016-05-23 09:35 | PN- Att Addend ---
Attending Addendum Attending Brief Note Patient has no complaints this morning General Appearance: Alert, No Acute Distress Skin: Grossly normal HEENT: PEERLA Neck: Supple, No JVD Cardiovascular: Regular Rate, Normal S1, Normal S2, No Murmurs Lungs: Clear to Auscultation, Normal Air Movement Abdomen: Normal Bowel Sounds, Soft, No Tenderness Neurological: Normal Speech, Strength at 5/5 X4 Ext, Cranial Nerves 3-12 NL, Reflexes 2+ Extremities: left foot wounds with drainage Vascular: Normal Pulses Assessment 86-year-old male with history of hypertension, diabetes, dyslipidemia, acid reflux, BPH with suprapubic catheter with a recent hospitalization for MRSA osteomyelitis involving left foot. CAT scan chest suggested right lower consolidation however there are no clear signs of clinical pneumonia, at this point vancomycin continued for treatment of osteomyelitis. Medical records from [facility] suggest polymicrobial infection including MRSA with debridement. Patient will need surgical exploration of wounds, we have made a decision to transfer patient to [facility] and his primary surgeon can resume treatment and possible surgical exploration. Plan Transfer patient to [facility] Continue current meds upon discharge Current Medications Sig/Brigido Start time Last Medication Dose Route Stop Time Status Admin Acetaminophen 650 MG Q6P PRN 05/17 2100 AC PO Atorvastatin Calcium 80 MG 1700 05/18 1700 AC 05/22 PO 1733 Bisacodyl 10 MG DAILY NEEDED PRN 05/17 2230 AC ME Diphenhydramine HCl 25 MG Q6P PRN 05/18 0230 AC IV Ferrous Sulfate 325 MG TID 05/21 1000 AC 05/23 PO 0928 Furosemide 40 MG DAILY 05/18 1000 AC 05/23 PO 0928 Heparin Sodium 5,000 UNIT Q8 05/17 2200 AC 05/23 (Porcine) SC 0553 Ibuprofen 600 MG Q6P PRN 05/17 2100 AC PO Insulin Aspart 0 TIDAC 05/18 0800 AC 05/23 SC 0839 Insulin Detemir 30 UNITS QPM 05/22 2200 AC 05/22 SC 2133 Insulin Detemir 25 UNITS QPM 05/18 2200 DC 05/21 SC 2155 Ipratropium [place] 2.5 ML Q4-6 PRN PRN 05/17 2245 AC INH Magnesium Hydroxide 30 ML DAILY NEEDED PRN 05/17 2245 AC PO Magnesium Sulfate 1 GM Q2H 05/22 0830 DC 05/22 Dextrose/Water 100 ML IV 05/22 1229 1333 Melatonin 5 MG AT BEDTIME NEED.. 05/19 0030 AC 05/21 PO 2155 Metoprolol Tartrate 12.5 MG BID 05/18 1000 AC 05/23 PO 0932 Olanzapine 2.5 MG BID PRN 05/18 0915 AC PO Oxycodone/ 2 TAB Q6P PRN 05/17 2100 AC Acetaminophen PO Sertraline HCl 25 MG DAILY 05/18 1000 AC 05/23 PO 09 Tamsulosin HCl 0.4 MG QPM 05/18 2200 AC 05/22 PO 213 Vancomycin HCl 1,250 MG DAILY 05/21 1000 AC 05/22 Dextrose/Water 250 ML IV 1134 Laboratory Tests 05/23 0610 Chemistry Magnesium (1.6 - 2.3 mg/dL) 1.6 Hematology CBC w Diff NO MAN DIFF REQ WBC (4.8 - 10.8 /CUMM) 11.8 H RBC (4.70 - 6.10 /CUMM) 2.73 L Hgb (14.0 - 18.0 G/DL) 7.5 L Hct (42 - 52 %) 22.7 L MCV (80.0 - 94.0 FL) 83.2 MCH (27.0 - 31.0 PG) 27.6 RDW (11.5 - 14.5 %) 15.0 H Plt Count (130 - 400 /CUMM) 485 H MPV (7.4 - 10.4 FL) 7.1 L Gran % (42.2 - 75.2 %) 69.5 Lymphocytes % (20.5 - 51.1 %) 17.5 L Monocytes % (1.7 - 9.3 %) 9.3 Eosinophils % (0 - 5 %) 3.4 Basophils % (0.0 - 2.0 %) 0.3 Absolute Granulocytes (1.4 - 6.5 /CUMM) 8.2 H Absolute Lymphocytes (1.2 - 3.4 /CUMM) 2.1 Absolute Monocytes (0.10 - 0.60 /CUMM) 1.1 H Absolute Eosinophils (0.0 - 0.7 /CUMM) 0.4 Absolute Basophils (0.0 - 0.2 /CUMM) 0 PUBS MCHC (33.0 - 37.0 G/DL) 33.1 Vital Signs Date Time Temp Pulse Resp B/P Pulse O2 O2 Flow FiO2 Ox Delivery Rate 05/23 0932 78 118/78 05/23 0630 98.1 87 20 122/68 91 Nasal 2.0L Cannula 05/23 0000 Nasal 1.5L Cannula 05/22 2141 97.8 80 20 118/68 92 05/22 2135 88 118/68 05/22 2134 88 118/68 05/22 1525 97.8 79 20 118/60 92 Nasal 1.5L Cannula 05/22 1129 Nasal 1.0L Cannula 05/22 0938 82 124/70
--- NOTE | 2016-05-23 12:20 | NUR ---
PT BLOOD SUGAR >500, MD ARTEAGA NOTIFIED, ADMINISTERED 14UNITS OF INSULIN PER ORDER, WILL RECHECK IN HALF AN HOUR.
--- NOTE | 2016-05-23 13:13 | PN- Infect Dx ---
Subjective Subjective: No new c/o. No fever. No cough or CP. Awaiting transfer to [facility]. Review of Systems Comments: 10 points reviewed as noted. Objective Last 24 Hrs of Vital Signs/I&O Vital Signs Date Time Temp Pulse Resp B/P Pulse O2 O2 Flow FiO2 Ox Delivery Rate 05/23 0932 78 118/78 05/23 0800 Nasal 1.5L Cannula 05/23 0630 98.1 87 20 122/68 91 Nasal 2.0L Cannula 05/23 0000 Nasal 1.5L Cannula 05/22 2141 97.8 80 20 118/68 92 05/22 2135 88 118/68 05/22 2134 88 118/68 05/22 1525 97.8 79 20 118/60 92 Nasal 1.5L Cannula Intake & Output 05/23 1600 05/23 0800 05/23 0000 Intake Total 100 240 Output Total 650 500 Balance -550 -260 Intake, IV 0 Intake, Oral 100 240 Number 2 1 Bowel Movements Output, Urine 650 500 Physical Exam Other Physical Findings: Gen: well nourished; no acute distress. He is afebrile. Skin reveals no rash. HEENT exam is negative. Neck is supple with no adenopathy. Lungs crackles at the right base. Heart regular rhythm with no murmur. Abdomen is soft, nontender with positive bowel sounds; suprapubic tube in place with no inflammation at the site. No CVA tenderness. Extremities ulcer on the posterior aspect of the left heel, decreased pulses bilaterally; PICC in the left upper extremity with no inflammation at the site. Neuro is without focality. Results Last 24 Hours of Lab Results: Laboratory Tests 05/23 0610 Chemistry Magnesium (1.6 - 2.3 mg/dL) 1.6 Hematology CBC w Diff NO MAN DIFF REQ WBC (4.8 - 10.8 /CUMM) 11.8 H RBC (4.70 - 6.10 /CUMM) 2.73 L Hgb (14.0 - 18.0 G/DL) 7.5 L Hct (42 - 52 %) 22.7 L MCV (80.0 - 94.0 FL) 83.2 MCH (27.0 - 31.0 PG) 27.6 RDW (11.5 - 14.5 %) 15.0 H Plt Count (130 - 400 /CUMM) 485 H MPV (7.4 - 10.4 FL) 7.1 L Gran % (42.2 - 75.2 %) 69.5 Lymphocytes % (20.5 - 51.1 %) 17.5 L Monocytes % (1.7 - 9.3 %) 9.3 Eosinophils % (0 - 5 %) 3.4 Basophils % (0.0 - 2.0 %) 0.3 Absolute Granulocytes (1.4 - 6.5 /CUMM) 8.2 H Absolute Lymphocytes (1.2 - 3.4 /CUMM) 2.1 Absolute Monocytes (0.10 - 0.60 /CUMM) 1.1 H Absolute Eosinophils (0.0 - 0.7 /CUMM) 0.4 Absolute Basophils (0.0 - 0.2 /CUMM) 0 PUBS MCHC (33.0 - 37.0 G/DL) 33.1 Last 24 Hours of Simba Results: n/a Recent Imaging Studies: n/a Assessment/Plan Impression: 86-year-old man with diabetes, recently hospitalized at [facility] and diagnosed with MRSA osteomyelitis of the left calcaneus, begun on Vancomycin via a PICC on 05/16/16 and admitted on May 17 from [facility]. Abx associated diarrhea (C. difficile infection ruled out)/self limited. Details regarding his recent hospitalization at [place] reviewed; started iv vancomycin on 05/16/2016. Elevated ESR; OM L calcaneus (failing to improve). Mild leukocytosis Suggestion: 1. Further care with primary surgeon; debridement/bone culture in [facility]. 2. Nutrition per team. 4. Continue Vancomycin at a dose of 1.25 g IV every 24 hours;goal vancomycin 15 -20. Vanco trough 05/22 14.7; repeat vancomycin level 05/24.
== END 2016-05-23 15:00 | disposition short-term general hospital (02) | DRG 540 ==
LOC: ENRESERVDT → CANRESERV → ENRESERVTM → ERH 12:19 → ENPENDDIS 19:36 → ERHI 19:36 → 2NA 19:36 → EDBEDREQ 20:27 → 2NA 21:58
PROVIDERS: Emergency Medicine; Internal Medicine; Internal Medicine Interventional Cardiology; Ophthalmology; Student in an Organized Health Care Education/Training Program; ADMIT Internal Medicine
DX: M86.8X7 Other osteomyelitis, ankle and foot (principal); J90 Pleural effusion, not elsewhere classified; L89.151 Pressure ulcer of sacral region, stage 1; D64.9 Anemia, unspecified; E11.9 Type 2 diabetes mellitus without complications; I10 Essential (primary) hypertension; E78.5 Hyperlipidemia, unspecified; K21.9 Gastro-esophageal reflux disease without esophagitis; N40.0 Benign prostatic hyperplasia without lower urinary tract symptoms; Z86.14 Personal history of Methicillin resistant Staphylococcus aureus infection; R45.1 Restlessness and agitation; I71.4 Abdominal aortic aneurysm, without rupture; Z79.4 Long term (current) use of insulin
CPT/HCPCS: 2NAP; 36415; 80307; 81001; 82436; 87040; 87070; 93005; 93010; 99232; G0463; G0480; J0744; J1200; J1580; J1630; J1644; J1815; J2185; J2997; J3370; J7040; J7060